=== PATIENT | female | born 1945 | race Caucasian/White ===

== ENCOUNTER → 2017-09-02 08:14 | Outpatient (CLI) | payer MEDICARE, SELFPAY ==
[2017-09-02 09:56] LABS: Add Manual Diff / Slide Review NO; Basophils Percent Auto 0.8 % (0-2); Eosinophils Percent Auto 1.4 % (2-4); Hematocrit 39.4 % (36-46); Hemoglobin 13.6 g/dL (12.0-16.0); Lymphocytes Percent Auto 32.7 % (25-40); Mean Corpuscular HGB Conc 34.5 % (30-36); Mean Corpuscular Volume 95.8 fL (80-100); Monocytes Percent Auto 10.4 % (3-14); Neutrophils Absolute Auto 3400 /uL (3000-5900); Neutrophils Percent Auto 54.7 % (50-75); Platelet Count 266 X10^3/uL (150-400); Red Blood Cell Count 4.11 X10^6/uL (4.0-5.2); Red Cell Distribution Width 13.7 % (11.6-14.8); White Blood Cell Count 6.1 X10^3/uL (4.5-11.0)
[2017-09-02 10:11] LABS: Alanine Aminotransferase 35 IU/L (9-52); Albumin 4.5 g/dL (3.5-5.0); Albumin Globulin Ratio 1.4 (1.0-2.8); Alkaline Phosphatase 62 U/L (38-126); Aspartate Aminotransferase 37 IU/L (14-36); BUN Creatinine Ratio 24.3 (6-22); Bilirubin Total 0.9 mg/dL (0.2-1.3); Blood Urea Nitrogen 17 mg/dL (7-17); Calcium 10.1 mg/dL (8.4-10.2); Carbon Dioxide 27 mmol/L (22-32); Chloride 101 mmol/L (98-107); Cholesterol 272 mg/dL (140-199); Estimated Glomerular Filt Rate > 60.0 mL/min (>60); Globulin 3.2 g/dL (1.7-4.1); Glucose 91 mg/dL (80-110); HDL Cholesterol 96 mg/dL (40-60); HEMOLYSIS < 15 (0-50); LDL Cholesterol Calculated 153 mg/dL (<100); Potassium 4.7 mmol/L (3.4-5.1); Sodium 140 mmol/L (137-145); Total Protein 7.7 g/dL (6.3-8.2); Triglycerides 114 mg/dL (35-150)
[2017-09-02 10:39] LABS: TSH w/ Reflex to FT4 3.61 uIU/mL (0.47-4.68)
== END ==
PROVIDERS: PCP Internal Medicine; Visit Provider Internal Medicine
DX: R94.6 Abnormal results of thyroid function studies (principal); R79.89 Other specified abnormal findings of blood chemistry; D70.9 Neutropenia, unspecified; E78.5 Hyperlipidemia, unspecified
CPT/HCPCS: 36415; 80053; 80061; 84443; 85025

== ENCOUNTER → 2017-09-15 15:06 | Outpatient (CLI) | payer MEDICARE, SELFPAY | PROVIDERS: Family Provider Internal Medicine; PCP Internal Medicine; Visit Provider Internal Medicine | DX: M81.0 Age-related osteoporosis without current pathological fracture (principal); Z78.0 Asymptomatic menopausal state | CPT/HCPCS: 77080 ==

== ENCOUNTER 2018-11-03 06:28 | Emergency (ER) | payer OTHER, SELFPAY ==
--- NOTE | 2018-11-03 06:35 | ED_ITS ---
HPI - General Adult <Parth Kellogg DO - Last Filed: 11/03/18 17:57> General Chief complaint: Dizziness Stated complaint: dizzy Time Seen by Provider: 11/03/18 06:31 Source: patient Mode of arrival: wheelchair Limitations: no limitations History of Present Illness HPI narrative: 73-year-old female here for evaluation of vertigo. States she has never felt anything like this. Started approximately 45 minutes prior arrival to here in the emergency department. Stated that it started with abdominal cramping and nausea. She then sat up to go the bathroom when she had a sudden onset of the vertigo. No vision changes. No ringing in her ears. No shortness of breath chest pain or palpitations. States she had to crawl to the bathroom. Difficult time standing. At the time my evaluation she reports that she has improvement of her symptoms compared with earlier today. Does seem to be positional specially when she turns her head to the left. Related Data Previous Rx's Medication Instructions Recorded apixaban [Eliquis] See Rx Instructions .ROUTE 11/03/18 .COMPLEX #60 tab Allergies Allergy/AdvReac Type Severity Reaction Status Date / Time No Known Drug Allergies Allergy Verified 09/08/17 10:18 Review of Systems <DO Sirisha Liang Last Filed: 11/03/18 17:57> Constitutional Denies fatigue, Denies fever(s) and Denies headache(s) Eyes Denies change in vision and Denies diplopia ENT Ears, Nose, Mouth, and Throat: Denies vertigo, Denies dizziness, Denies headache(s), Reports disequilibrium and Denies tinnitus Cardiovascular Denies chest pain, Denies syncope, Denies lightheadedness and Denies dyspnea Respiratory Denies dyspnea Gastrointestinal Gastrointestinal: Denies abdominal pain, Denies change in stool character and Reports nausea Musculoskeletal Denies myalgias, Denies arthralgias and Denies tingling Integumentary/Breasts Denies rash Neurologic Denies vertigo, Denies dizziness, Denies syncope, Denies headache(s), Denies radicular pain, Denies tingling and Reports disequilibrium Endocrine Denies fatigue Hematologic/Lymphatic Denies easy bleeding and Denies easy bruising PFSH <DO Sirisha Liang Last Filed: 11/03/18 17:57> Medical History Anemia (Chronic ~1959) Cervical spine disease (Chronic ~2004) Colon polyps (Chronic ~2009) Diverticular disease (Chronic ~1971) Fibroids (Chronic ~1994) Hemorrhoid (Chronic ~1967) Human papilloma virus (Chronic ~2005) Hyperlipidemia (Chronic) Lumbar spine pain (Chronic ~2005) Osteoporosis (Chronic) Chicken pox (Resolved ~1953) Surgical History (Updated 09/08/17 @ 09:49 by Elva Gtz) Anesthesia (Resolved) Normal colonoscopy (Resolved ~2013) History of tonsillectomy Status post appendectomy Status post dilation and curettage Status post ovarian cystectomy Status post tubal ligation Family History (Updated 08/07/14 @ 00:00 by Conversion Provider) Father Hypertension Brother Age: 91 Hyperlipidemia Mother High cholesterol Mental health problem Social History Smoking Status: Never smoker Family History (Updated 08/07/14 @ 00:00 by Conversion Provider) Father Hypertension Brother Age: 91 Hyperlipidemia Mother High cholesterol Mental health problem Social History Smoking Status: Never smoker Exam <Parth Kellogg DO - Last Filed: 11/03/18 17:57> Initial Vital Signs Initial Vital Signs: Vital Signs Temperature 97.6 F 11/03/18 06:38 Pulse Rate 72 11/03/18 06:38 Respiratory Rate 16 11/03/18 06:38 Blood Pressure 122/65 11/03/18 06:38 Pulse Oximetry 100 11/03/18 06:38 Const General: cooperative, comfortable, well developed, well groomed and No acute distress Orientation: alert, awake and oriented x3 HENMT Head: normal to inspection and normocephalic Eyes Pupils: PERRL Resp Effort & Inspection: normal respiratory effort Auscultation: clear to auscultation bilaterally Cardio Rate: regular rate Rhythm: regular rhythm Skin Lesions: no lesions Rashes: no rashes Neuro General: alert, awake and oriented x3 Cognition: normal cognition Speech: speech normal Other: Kody Hallpike positives of the left Extrem General: normal to inspection and capillary refill normal Psych Appearance: grossly normal and well kempt <Ariel Edgar DO - Last Filed: 11/03/18 16:01> Initial Vital Signs Initial Vital Signs: Vital Signs Temperature 97.6 F 11/03/18 06:38 Pulse Rate 72 11/03/18 06:38 Respiratory Rate 16 11/03/18 06:38 Blood Pressure 122/65 11/03/18 06:38 Pulse Oximetry 100 11/03/18 06:38 Course <Parth Kellogg DO - Last Filed: 11/03/18 17:57> Orders Ordered: Discontinued Medications Sodium Chloride (Normal Saline 0.9%) 1,000 mls @ 125 mls/hr IV CONT NIRAJ Last Infusion: 11/03/18 08:49 Dose: 125 mls/hr Infusion: 11/03/18 08:29 Dose: 0 mls/hr Admin: 11/03/18 06:44 Dose: 125 mls/hr Meclizine HCl (Antivert) 25 mg PO NOW ONE Stop: 11/03/18 06:35 Last Admin: 11/03/18 06:43 Dose: 25 mg Ondansetron HCl (Zofran Odt) 4 mg PO NOW ONE Stop: 11/03/18 06:35 Last Admin: 11/03/18 06:43 Dose: 4 mg Vital Signs - 8 hr 11/03/18 08:30 11/03/18 08:50 Temperature 97.6 F Pulse Rate 85 84 Respiratory Rate 21 20 Blood Pressure 122/59 L Blood Pressure [Right Arm] 122/59 L Pulse Oximetry 98 <Ariel Edgar DO - Last Filed: 11/03/18 16:01> Course Narrative: Patient received in sign-out from Dr. Kellogg. I have performed an independent history and physical and have no significant additions. Patient's has sudden onset severe vertiginous complaints that are positional, reproducible. She has recently complained of left ear fullness and has had her ear irrigated. Initial EKG was a slightly bradycardic atrial fibrillation, old EKGs note AFib. I've had a discussion with cardiology whom recommend anticoagulation, discharge, follow up including echo and a heart monitor. I've contacted her PCP (Simran Brunner) whom is happy to see the patient in the office tomorrow or friday. Patient has had all of her questions answered to her apparent satisfaction and has been given extensive return precautions which she understands as evidenced by her ability to repeat these back to me verbally Orders Ordered: Discontinued Medications Sodium Chloride (Normal Saline 0.9%) 1,000 mls @ 125 mls/hr IV CONT NIRAJ Last Infusion: 11/03/18 08:49 Dose: 125 mls/hr Infusion: 11/03/18 08:29 Dose: 0 mls/hr Admin: 11/03/18 06:44 Dose: 125 mls/hr Meclizine HCl (Antivert) 25 mg PO NOW ONE Stop: 11/03/18 06:35 Last Admin: 11/03/18 06:43 Dose: 25 mg Ondansetron HCl (Zofran Odt) 4 mg PO NOW ONE Stop: 11/03/18 06:35 Last Admin: 11/03/18 06:43 Dose: 4 mg Vital Signs - 8 hr 11/03/18 08:30 11/03/18 08:50 Temperature 97.6 F Pulse Rate 85 84 Respiratory Rate 21 20 Blood Pressure 122/59 L Blood Pressure [Right Arm] 122/59 L Pulse Oximetry 98 Medical Decision Making <Parth Kellogg DO - Last Filed: 11/03/18 17:57> Lab Data Result diagrams: 11/03/18 06:50 11/03/18 06:50 Lab Results 11/03/18 11/03/18 11/03/18 Range/Units 06:50 06:50 06:50 WBC 6.9 (4.5-11.0) X10^3/uL RBC 4.18 (4.0-5.2) X10^6/uL Hgb 13.4 (12.0-16.0) g/dL Hct 40.4 (36-46) % MCV 96.8 (80-100) fL MCH 32.2 (26-34) PG MCHC 33.2 (30-36) % RDW 13.5 (11.6-14.8) % Plt Count 254 (150-400) X10^3/uL Neut % (Auto) 60.4 (50-75) % Lymph % (Auto) 29.0 (25-40) % [place] % (Auto) 7.5 (3-14) % Eos % (Auto) 1.8 L (2-4) % Baso % (Auto) 1.3 (0-2) % Neut # (Auto) 4200 (5909-9635) /uL Lymph # (Auto) 2000 (2231-3098) /uL [place] # (Auto) 500 (0-900) /uL Eos # (Auto) 100 (0-450) /uL Baso # (Auto) 100 (0-100) /uL PT 10.7 (10.1-12.7) SECONDS INR 0.9 (0.9-1.3) APTT 24 L (26.4-36.2) SECONDS Sodium 137 (137-145) mmol/L Potassium 3.7 (3.4-5.1) mmol/L Chloride 105 (98-107) mmol/L Carbon Dioxide 24 (22-32) mmol/L BUN 19 H (7-17) mg/dL Creatinine 0.70 (0.52-1.04) mg/dL Estimated GFR > 60.0 (>60) mL/min BUN/Creatinine Ratio 27.1 H (6-22) Glucose 151 H (80-110) mg/dL Calcium 9.4 (8.4-10.2) mg/dL Magnesium (1.6-2.3) mg/dL Total Bilirubin 0.7 (0.2-1.3) mg/dL AST 25 (14-36) IU/L ALT 14 (9-52) IU/L Alkaline Phosphatase 54 (38-126) U/L Troponin I < 0.012 (0.01-0.034) ng/mL B-Natriuretic Peptide 149 H (<100) Total Protein 6.9 (6.3-8.2) g/dL Albumin 4.0 (3.5-5.0) g/dL Globulin 2.9 (1.7-4.1) g/dL Albumin/Globulin Ratio 1.4 (1.0-2.8) Lipase 55 (23-300) U/L TSH (0.47-4.68) uIU/mL Thyroxine (T4) (5.5-11.0) ug/dL 11/03/18 11/03/18 Range/Units 06:50 06:50 WBC (4.5-11.0) X10^3/uL RBC (4.0-5.2) X10^6/uL Hgb (12.0-16.0) g/dL Hct (36-46) % MCV (80-100) fL MCH (26-34) PG MCHC (30-36) % RDW (11.6-14.8) % Plt Count (150-400) X10^3/uL Neut % (Auto) (50-75) % Lymph % (Auto) (25-40) % [place] % (Auto) (3-14) % Eos % (Auto) (2-4) % Baso % (Auto) (0-2) % Neut # (Auto) (4763-3334) /uL Lymph # (Auto) (8150-6508) /uL [place] # (Auto) (0-900) /uL Eos # (Auto) (0-450) /uL Baso # (Auto) (0-100) /uL PT (10.1-12.7) SECONDS INR (0.9-1.3) APTT (26.4-36.2) SECONDS Sodium (137-145) mmol/L Potassium (3.4-5.1) mmol/L Chloride (98-107) mmol/L Carbon Dioxide (22-32) mmol/L BUN (7-17) mg/dL Creatinine (0.52-1.04) mg/dL Estimated GFR (>60) mL/min BUN/Creatinine Ratio (6-22) Glucose (80-110) mg/dL Calcium (8.4-10.2) mg/dL Magnesium 1.7 (1.6-2.3) mg/dL Total Bilirubin (0.2-1.3) mg/dL AST (14-36) IU/L ALT (9-52) IU/L Alkaline Phosphatase (38-126) U/L Troponin I (0.01-0.034) ng/mL B-Natriuretic Peptide (<100) Total Protein (6.3-8.2) g/dL Albumin (3.5-5.0) g/dL Globulin (1.7-4.1) g/dL Albumin/Globulin Ratio (1.0-2.8) Lipase (23-300) U/L TSH 4.18 (0.47-4.68) uIU/mL Thyroxine (T4) 3.92 L (5.5-11.0) ug/dL ECG Data Attestation: I personally reviewed and interpreted this ECG as follows: Prior ECG tracings: available for review Interpretation: Atrial fibrillation Ventricular rate is 63 QT interval [address] T wave changes Comparison EKG from 12/24/2012 Atrial fibrillation Ventricular rate of 107 Normal axis QTC [address] T wave changes MDM Narrative Medical decision making narrative: Upon arrival patient's symptoms did seem consistent peripheral vertigo. Was reproducible with the Radha-Hallpike maneuver to the left however this is in the confines that the patient states that her symptoms have improved since this morning. She is in AFib on her EKG. Patient states that she does not have a history of atrial fibrillation. She does have a prior EKG from 2012 which shows atrial fibrillation. Patient is not on anticoagulation. Care turned over to day provider change of shift to follow up on labs and disposition. <Ariel Edgar DO - Last Filed: 11/03/18 16:01> Lab Data Lab Results 11/03/18 11/03/18 11/03/18 Range/Units 06:50 06:50 06:50 WBC 6.9 (4.5-11.0) X10^3/uL RBC 4.18 (4.0-5.2) X10^6/uL Hgb 13.4 (12.0-16.0) g/dL Hct 40.4 (36-46) % MCV 96.8 (80-100) fL MCH 32.2 (26-34) PG MCHC 33.2 (30-36) % RDW 13.5 (11.6-14.8) % Plt Count 254 (150-400) X10^3/uL Neut % (Auto) 60.4 (50-75) % Lymph % (Auto) 29.0 (25-40) % [place] % (Auto) 7.5 (3-14) % Eos % (Auto) 1.8 L (2-4) % Baso % (Auto) 1.3 (0-2) % Neut # (Auto) 4200 (8989-9035) /uL Lymph # (Auto) 2000 (3570-7752) /uL [place] # (Auto) 500 (0-900) /uL Eos # (Auto) 100 (0-450) /uL Baso # (Auto) 100 (0-100) /uL PT 10.7 (10.1-12.7) SECONDS INR 0.9 (0.9-1.3) APTT 24 L (26.4-36.2) SECONDS Sodium 137 (137-145) mmol/L Potassium 3.7 (3.4-5.1) mmol/L Chloride 105 (98-107) mmol/L Carbon Dioxide 24 (22-32) mmol/L BUN 19 H (7-17) mg/dL Creatinine 0.70 (0.52-1.04) mg/dL Estimated GFR > 60.0 (>60) mL/min BUN/Creatinine Ratio 27.1 H (6-22) Glucose 151 H (80-110) mg/dL Calcium 9.4 (8.4-10.2) mg/dL Magnesium (1.6-2.3) mg/dL Total Bilirubin 0.7 (0.2-1.3) mg/dL AST 25 (14-36) IU/L ALT 14 (9-52) IU/L Alkaline Phosphatase 54 (38-126) U/L Troponin I < 0.012 (0.01-0.034) ng/mL B-Natriuretic Peptide 149 H (<100) Total Protein 6.9 (6.3-8.2) g/dL Albumin 4.0 (3.5-5.0) g/dL Globulin 2.9 (1.7-4.1) g/dL Albumin/Globulin Ratio 1.4 (1.0-2.8) Lipase 55 (23-300) U/L TSH (0.47-4.68) uIU/mL Thyroxine (T4) (5.5-11.0) ug/dL 11/03/18 11/03/18 Range/Units 06:50 06:50 WBC (4.5-11.0) X10^3/uL RBC (4.0-5.2) X10^6/uL Hgb (12.0-16.0) g/dL Hct (36-46) % MCV (80-100) fL MCH (26-34) PG MCHC (30-36) % RDW (11.6-14.8) % Plt Count (150-400) X10^3/uL Neut % (Auto) (50-75) % Lymph % (Auto) (25-40) % [place] % (Auto) (3-14) % Eos % (Auto) (2-4) % Baso % (Auto) (0-2) % Neut # (Auto) (7539-4381) /uL Lymph # (Auto) (1291-4227) /uL [place] # (Auto) (0-900) /uL Eos # (Auto) (0-450) /uL Baso # (Auto) (0-100) /uL PT (10.1-12.7) SECONDS INR (0.9-1.3) APTT (26.4-36.2) SECONDS Sodium (137-145) mmol/L Potassium (3.4-5.1) mmol/L Chloride (98-107) mmol/L Carbon Dioxide (22-32) mmol/L BUN (7-17) mg/dL Creatinine (0.52-1.04) mg/dL Estimated GFR (>60) mL/min BUN/Creatinine Ratio (6-22) Glucose (80-110) mg/dL Calcium (8.4-10.2) mg/dL Magnesium 1.7 (1.6-2.3) mg/dL Total Bilirubin (0.2-1.3) mg/dL AST (14-36) IU/L ALT (9-52) IU/L Alkaline Phosphatase (38-126) U/L Troponin I (0.01-0.034) ng/mL B-Natriuretic Peptide (<100) Total Protein (6.3-8.2) g/dL Albumin (3.5-5.0) g/dL Globulin (1.7-4.1) g/dL Albumin/Globulin Ratio (1.0-2.8) Lipase (23-300) U/L TSH 4.18 (0.47-4.68) uIU/mL Thyroxine (T4) 3.92 L (5.5-11.0) ug/dL Discharge Plan Departure Patient Disposition: Home Clinical Impression: Dizziness Atrial fibrillation Qualifiers: Atrial fibrillation type: paroxysmal Qualified Code(s): I48.0 - Paroxysmal atrial fibrillation Discharge Date/Time: 11/03/18 08:51 Interventions: ED Discharge Assessment Last Done: 11/03/18 08:50 Instructions: DI for Atrial Fibrillation, DI for Vertigo Activity Restrictions/Additional Instructions: *You have been diagnosed with [dizziness, likely from vertigo and paroxysmal atrial fibrillation] *What to do: *Take medications as directed: Eliquis electronically transmitted to [facility]'s *Follow up with your primary care provider as soon as possible, call for an appointment today. Let them know you were seen in the Emergency Department and that we ask that you be seen in follow up. I've called Simran Brunner and she is expecting you to contact the office this morning *Return to ER if you should have any new, worsening or concerning symptoms Prescriptions: New Eliquis 5 mg tablet See Rx Instructions .ROUTE .COMPLEX Qty: 60 RF: 0 Referrals: Simran Brunner ARNP [Primary Care Provider] -
[2018-11-03 06:38] VITALS: BP 122/65; PULSE 72; RESP 16; TEMP 36.4; O2SAT 100; BMI 22.4
[2018-11-03] MEDS: MECLIZINE HCL 12.5 MG TABLET 25 MG PO (06:43)
[2018-11-03] MEDS: ONDANSETRON 4 MG ODT PO (06:43)
[2018-11-03] MEDS: SODIUM CHLORIDE 0.9% 1,000 ML 125 ML IV (06:44)
[2018-11-03 06:57] VITALS: BP 122/65; PULSE 66; RESP 15; O2SAT 94
[2018-11-03 07:01] LABS: Add Manual Diff / Slide Review NO; Basophils Absolute Auto 100 /uL (0-100); Basophils Percent Auto 1.3 % (0-2); Eosinophils Absolute Auto 100 /uL (0-450); Eosinophils Percent Auto 1.8 % (2-4); Hematocrit 40.4 % (36-46); Hemoglobin 13.4 g/dL (12.0-16.0); Lymphocytes Absolute Auto 2000 /uL (1100-4500); Mean Corpuscular HGB Conc 33.2 % (30-36); Mean Corpuscular Hemoglobin 32.2 PG (26-34); Mean Corpuscular Volume 96.8 fL (80-100); Monocytes Absolute Auto 500 /uL (0-900); Monocytes Percent Auto 7.5 % (3-14); Neutrophils Absolute Auto 4200 /uL (1500-7000); Neutrophils Percent Auto 60.4 % (50-75); Platelet Count 254 X10^3/uL (150-400); Red Blood Cell Count 4.18 X10^6/uL (4.0-5.2); Red Cell Distribution Width 13.5 % (11.6-14.8); White Blood Cell Count 6.9 X10^3/uL (4.5-11.0)
[2018-11-03 07:08] LABS: INR 0.9 (0.9-1.3); Prothrombin Time 10.7 SECONDS (10.1-12.7)
[2018-11-03 07:10] LABS: PTT Partial Thromboplastin Tim 24 SECONDS (26.4-36.2)
[2018-11-03 07:12] LABS: Alanine Aminotransferase 14 IU/L (9-52); Albumin Globulin Ratio 1.4 (1.0-2.8); Alkaline Phosphatase 54 U/L (38-126); Aspartate Aminotransferase 25 IU/L (14-36); BUN Creatinine Ratio 27.1 (6-22); Bilirubin Total 0.7 mg/dL (0.2-1.3); Blood Urea Nitrogen 19 mg/dL (7-17); Calcium 9.4 mg/dL (8.4-10.2); Carbon Dioxide 24 mmol/L (22-32); Chloride 105 mmol/L (98-107); Estimated Glomerular Filt Rate > 60.0 mL/min (>60); Globulin 2.9 g/dL (1.7-4.1); Glucose 151 mg/dL (80-110); HEMOLYSIS < 15 (0-50); Lipase 55 U/L (23-300); Potassium 3.7 mmol/L (3.4-5.1); Sodium 137 mmol/L (137-145); Total Protein 6.9 g/dL (6.3-8.2)
[2018-11-03 07:20] LABS: B Type Natriuretic Peptide 149 (<100)
[2018-11-03 07:24] LABS: Troponin I < 0.012 ng/mL (0.01-0.034)
[2018-11-03 07:27] VITALS: BP 113/59; PULSE 65; RESP 21; O2SAT 99
[2018-11-03 07:47] VITALS: BP 105/51; PULSE 65; RESP 13; O2SAT 100
[2018-11-03 08:17] LABS: Magnesium 1.7 mg/dL (1.6-2.3)
[2018-11-03 08:30] VITALS: BP 122/59; PULSE 85; RESP 21
[2018-11-03 08:35] LABS: T4 Total Thyroxine 3.92 ug/dL (5.5-11.0)
[2018-11-03 08:48] LABS: Thyroid Stimulating Hormone 4.18 uIU/mL (0.47-4.68)
[2018-11-03 08:50] VITALS: BP 122/59; PULSE 84; RESP 20; TEMP 36.4; O2SAT 98
== END 2018-11-03 08:51 | disposition home or self-care (01) ==
PROVIDERS: Emergency Medicine; Emergency Provider Emergency Medicine; Family Provider Internal Medicine; PCP Internal Medicine
DX: R42 Dizziness and giddiness (principal); I48.0 Paroxysmal atrial fibrillation; Z79.01 Long term (current) use of anticoagulants
CPT/HCPCS: 36591; 80053; 83690; 83735; 83880; 84436; 84443; 84484; 85025; 85610; 85730; 93005; 96360; 96361; 99283; 99284

== ENCOUNTER → 2018-11-24 09:09 | Outpatient (CLI) | payer OTHER, SELFPAY ==
--- NOTE | 2018-11-24 | DI.ECHO.S_ITS ---
[facility] +---------+ : : [address] : : : : [id number] : : : : Phone: [phone] Echocardiogram Report + + :Name: EVELIA YUSUF Study Date: 11/24/2018 Height: 64 in : :[facility] Weight: 130 lb : : Gender: Female BSA: 1.6 m2 : :: 1945 Age: 73 yrs BP: 138/64 mmHg: :Reason For Study: Atrial fibrillation : : Performed By: Rosalia Dallas : :Referring: KIN BURR : + + Interpretation Summary The left ventricle is normal in size. Left ventricular systolic function is mildly reduced. The ejection fraction is estimated to be 45-50%. There is milld hypokinesis along the mid anteroseptal, mid anterior, apical anterior and apical septum. Diastolic function could not be accurately assessed due to atrial fibrillation. The right ventricle grossly appears normal in size with probable normal systolic function. The right ventricular systolic pressure is estimated to be at least 28 mmHg based on an estimated right atrial pressure of 3 mm Hg. The left atrium is severely dilated. The right atrium is moderate to severely dilated. The mitral valve leaflets appear mildly thickened, but open well. There is flattening of the mitral valve during late systole. There is moderate to severe mitral regurgitation. There is mild aortic regurgitation. There is no other significant valvular heart disease. The aortic root is normal size. Procedure: A two-dimensional transthoracic echocardiogram with color flow and Doppler was performed. The study quality was technically good. There is no prior echocardiogram noted for this patient. The patient was in atrial fibrillation with heart rates between 80-98 bpm during the exam. Left Ventricle: The left ventricle is normal in size. There is normal left ventricular wall thickness. Left ventricular systolic function is mildly reduced. The ejection fraction is estimated to be 45-50%. There is milld hypokinesis along the mid anteroseptal, mid anterior, apical anterior and apical septum. Diastolic function could not be accurately assessed due to atrial fibrillation. Right Ventricle: The right ventricle grossly appears normal in size with probable normal systolic function. Atria: The left atrium is severely dilated. The right atrium is moderate to severely dilated. The interatrial septum is intact with no evidence for an atrial septal defect. Mitral Valve: The mitral valve leaflets appear mildly thickened, but open well. There is flattening of the mitral valve during late systole. There is moderate to severe mitral regurgitation. Aortic Valve: The aortic valve is trileaflet. The aortic valve opens well. There is mild aortic valve sclerosis. There is mild aortic regurgitation. Tricuspid Valve: The tricuspid valve leaflets are thin and pliable. There is mild tricuspid regurgitation. The right ventricular systolic pressure is estimated to be at least 28 mmHg based on an estimated right atrial pressure of 3 mm Hg. Pulmonic Valve: The pulmonic valve is normal in structure and function. There is no pulmonic valvular regurgitation. There is no other significant valvular heart disease. Great Vessels: The aortic root is normal size. The dimensions of the ascending aorta are normal. The aortic arch is normal in size. The IVC is of normal diameter and collapses greater than 50% with a sniff. This suggests a low right atrial pressure of 3 mm Hg. Pericardium/ Pleura There is no pericardial effusion. There is no pleural effusion. MMode/2D Measurements & Calculations LVIDd: 4.9 cm Ao root diam: 3.5 cm LVIDs: 3.0 cm Aortic Jxn: 3.0 cm FS: 39.7 % asc Aorta Diam: 2.7 cm EPSS: 0.51 cm Ao Arch Diam (Prox Trans): 2.7 cm IVSd: 0.90 cm LVPWd: 0.90 cm LV bernard. diameter/BSA (cm/m^2): 3.0 LV sys. diameter/BSA (cm/m^2): 1.8 LA dimension: 3.9 cm RA long axis: 5.6 cm LA A2 area: 28.8 cm2 RA area: 23.4 cm2 LA A4 area: 31.7 cm2 RA vol: 82.1 ml LA length (vol): 6.2 cm RA : 50.4 ml/m2 LA vol: 125.4 ml IVC diam: 1.3 cm LA vol index: 77.0 ml/m2 RVDd major: 5.9 cm RVD1 (basal): 3.0 cm RVD2 (mid): 2.4 cm Doppler Measurements & Calculations Ao V2 max: 95.0 cm/sec AI P1/2t: 600.8 msec Ao V2 mean: 62.8 cm/sec AI dec slope: 201.1 cm/sec2 Ao max P.6 mmHg Ao mean P.8 mmHg Ao V2 VTI: 19.8 cm MV E max kavita: 93.4 cm/sec TR max kavita: 248.4 cm/sec MV A max kavita: 74.0 cm/sec TR max P.7 mmHg MV E/A: 1.3 PA V2 max: 60.7 cm/sec MV dec time: 0.20 sec PA V2 mean: 38.0 cm/sec MV P1/2t: 58.6 msec PA mean P.70 mmHg MR ERO: 0.30 cm2 PA Accel Time: 0.14 sec MV P1/2t max kavita: 93.0 cm/sec MR flow rate: 149.6 cm3/sec MVA(P1/2t): 3.8 cm2 MR PISA radius: 0.78 cm Reading Physician:06:37 PM
== END ==
PROVIDERS: PCP Internal Medicine; Visit Provider Internal Medicine
DX: M81.0 Age-related osteoporosis without current pathological fracture (principal)
CPT/HCPCS: 77080; 93306

== ENCOUNTER → 2019-03-15 07:18 | Outpatient (CLI) | payer OTHER, SELFPAY ==
--- NOTE | 2019-03-16 17:49 | DI.NM.S_ITS ---
DATE OF SERVICE: 03/15/2019 PROCEDURE: Exercise perfusion study. INDICATIONS: Atrial fibrillation with underlying LV dysfunction. RADIOPHARMACEUTICAL: 24.6 mCi technetium-99m Myoview IV was injected at stress and 24.4 mCi technetium-99m Myoview IV was injected at rest. CARDIAC STRESS: Patient underwent exercise perfusion study under the supervision of an attending staff using standard Cristóbal protocol. She walked on Cristóbal protocol for 5 minutes 28 seconds, achieved 121% of target heart rate, normal hemodynamic response. Baseline blood pressure 130/84. Maximum blood pressure 200/90. Peak heart rate 178. Baseline EKG revealed atrial fibrillation with controlled ventricular rate. During exercise, there was enhance chronotropic response. At peak exercise, there was 1 to1.5 mm horizontal as well as downsloping ST depression in inferolateral leads with recovery. Occasional PVCs. No significant symptoms were reported. RAW DATA: Breast shadow was seen. There was increased subdiaphragmatic activity. GATED STUDY: Resting LV ejection fraction 73% and stress LV ejection fraction 74%. No obvious wall motion abnormalities. Resting end-diastolic volume is 124 mL. TID ratio is 0.93, which is within normal limits. Lung/heart ratio is 0.33, which is within normal limits. MYOCARDIAL PERFUSION SCAN: Stress supine, resting supine images revealed small- sized mildly decreased perfusion of mid anterior wall which got slightly improved during prone images. Prone images remained to have minimally decreased perfusion of mid anterior wall. No significant perfusion defect involving the rest of the LV myocardium. No reversible ischemia. CONCLUSION: No obvious reversible ischemia. There is a mild mid anterior wall defect which was seen during resting as well as stress supine images which got partially improved during prone images. It appears to be that we are dealing with persistent breast tissue attenuation artifact. No obvious wall motion abnormalities in the anterior wall. Overall, left ventricular (LV) function is preserved in this study. Hence, I will call this study likely a normal myocardial perfusion study. Patient has baseline atrial fibrillation. There was enhanced chronotropic response. Kristen Quiroz - ISAIAS/spencer/ doc#: [id number]/job#: [id number] dd: 03/16/2019 16:24:00 dt: 03/16/2019 17:41:00 DICTATING MD/COPIES TO: Vin Valadez MD COPIES MNE: CASIMIRO
== END ==
PROVIDERS: PCP Internal Medicine; Visit Provider Internal Medicine Cardiovascular Disease
DX: I48.19 Other persistent atrial fibrillation (principal); I42.9 Cardiomyopathy, unspecified
CPT/HCPCS: 78452; 93016; 93017; 93018; A9502

== ENCOUNTER → 2019-04-16 08:11 | Outpatient (ROUT) | payer OTHER, SELFPAY ==
[2019-04-16 08:19] LABS: INR 1.6 (0.9-1.3)
== END ==
PROVIDERS: PCP Internal Medicine; Visit Provider Internal Medicine
DX: I48.91 Unspecified atrial fibrillation (principal)
CPT/HCPCS: 85610

== ENCOUNTER → 2019-04-19 08:36 | Outpatient (ROUT) | payer OTHER, SELFPAY ==
[2019-04-19 08:57] LABS: INR 3.6 (0.9-1.3); Prothrombin Time 42.3 SECONDS (10.1-12.7)
== END ==
PROVIDERS: PCP Internal Medicine; Visit Provider Internal Medicine
DX: I48.91 Unspecified atrial fibrillation (principal)
CPT/HCPCS: 85610

== ENCOUNTER → 2019-04-22 08:31 | Outpatient (ROUT) | payer OTHER, SELFPAY ==
[2019-04-22 09:24] LABS: Prothrombin Time 56.1 SECONDS (10.1-12.7)
[2019-04-22 09:31] LABS: INR 4.7 (0.9-1.3)
== END ==
PROVIDERS: PCP Internal Medicine; Visit Provider Internal Medicine
DX: Z79.01 Long term (current) use of anticoagulants (principal)
CPT/HCPCS: 85610

== ENCOUNTER → 2019-04-26 07:48 | Outpatient (ROUT) | payer OTHER, SELFPAY ==
[2019-04-26 07:59] LABS: INR 1.5 (0.9-1.3); Prothrombin Time 17.8 SECONDS (10.1-12.7)
== END ==
PROVIDERS: PCP Internal Medicine; Visit Provider Internal Medicine
DX: Z79.01 Long term (current) use of anticoagulants (principal)
CPT/HCPCS: 85610

== ENCOUNTER → 2019-04-26 10:02 | Outpatient (CLI) | payer OTHER, SELFPAY ==
--- NOTE | 2019-04-26 10:07 | DI.CT.S_ITS ---
PROCEDURE: CT SINUS SCREEN WO CON INDICATIONS: Other chronic sinusitis TECHNIQUE: Noncontrast 3.0 mm axial images acquired from the frontal sinuses to the mid-sella, with coronal and sagittal reformats. For radiation dose reduction, the following was used: automated exposure control, adjustment of mA and/or kV according to patient size. COMPARISON: None. FINDINGS: Image quality: Excellent. Maxillary Sinuses: No bony remodeling or destruction. Sinuses are clear. Ethmoid Air Cells: No bony remodeling or destruction. Sinuses are clear. Sphenoid Sinuses: No bony remodeling or destruction. Sinuses are clear. Frontal Sinuses: No bony remodeling or destruction. Sinuses are clear. Ostiomeatal Complexes: Ostiomeatal complexes are patent. No Ahsan cells. Miscellaneous: Visualized intra-orbital contents are normal. No adrian bullosa or paradoxical turbinate curvature. There is minimal to mild leftward nasal septal deviation. IMPRESSION: No active paranasal sinus disease is seen. Minimal to mild leftward nasal septal deviation. Dictated by: Jaun Moyer M.D. on 04/26/2019 at 9:26 Approved by: Jaun Moyer M.D. on 04/26/2019 at 9:27
== END ==
PROVIDERS: PCP Internal Medicine; Visit Provider Otolaryngology
DX: J32.8 Other chronic sinusitis (principal)
CPT/HCPCS: 70486

== ENCOUNTER → 2019-04-30 07:46 | Outpatient (ROUT) | payer OTHER, SELFPAY ==
[2019-04-30 07:54] LABS: INR 2.6 (0.9-1.3)
== END ==
PROVIDERS: PCP Internal Medicine; Visit Provider Internal Medicine
DX: Z79.01 Long term (current) use of anticoagulants (principal)
CPT/HCPCS: 85610

== ENCOUNTER → 2019-05-07 07:59 | Outpatient (ROUT) | payer OTHER, SELFPAY ==
[2019-05-07 08:14] LABS: Prothrombin Time 55.7 SECONDS (10.1-12.7)
[2019-05-07 08:19] LABS: INR 4.7 (0.9-1.3)
== END ==
PROVIDERS: PCP Internal Medicine; Visit Provider Internal Medicine
DX: Z79.01 Long term (current) use of anticoagulants (principal)
CPT/HCPCS: 85610

== ENCOUNTER → 2019-05-12 07:32 | Outpatient (ROUT) | payer OTHER, SELFPAY ==
[2019-05-12 07:38] LABS: INR 1.8 (0.9-1.3)
== END ==
PROVIDERS: PCP Internal Medicine; Visit Provider Internal Medicine
DX: Z79.01 Long term (current) use of anticoagulants (principal)
CPT/HCPCS: 85610

== ENCOUNTER → 2019-05-17 08:09 | Outpatient (ROUT) | payer OTHER, SELFPAY ==
[2019-05-17 08:18] LABS: INR 2.9 (0.9-1.3); Prothrombin Time 32.9 SECONDS (10.1-12.7)
== END ==
PROVIDERS: PCP Internal Medicine; Visit Provider Internal Medicine
DX: Z79.01 Long term (current) use of anticoagulants (principal)
CPT/HCPCS: 85610

== ENCOUNTER → 2019-05-21 07:42 | Outpatient (ROUT) | payer OTHER, SELFPAY ==
[2019-05-21 07:52] LABS: INR 2.4 (0.9-1.3); Prothrombin Time 27.6 SECONDS (10.1-12.7)
== END ==
PROVIDERS: PCP Internal Medicine; Visit Provider Internal Medicine
DX: Z79.01 Long term (current) use of anticoagulants (principal)
CPT/HCPCS: 85610

== ENCOUNTER → 2019-05-28 07:42 | Outpatient (ROUT) | payer OTHER, SELFPAY ==
[2019-05-28 07:57] LABS: INR 2.3 (0.9-1.3); Prothrombin Time 25.7 SECONDS (10.1-12.7)
== END ==
PROVIDERS: PCP Internal Medicine; Visit Provider Internal Medicine
DX: Z79.01 Long term (current) use of anticoagulants (principal)
CPT/HCPCS: 85610

== ENCOUNTER → 2019-06-07 08:01 | Outpatient (ROUT) | payer OTHER, SELFPAY ==
[2019-06-07 08:42] LABS: INR 1.6 (0.9-1.3); Prothrombin Time 18.8 SECONDS (10.1-12.7)
== END ==
PROVIDERS: PCP Internal Medicine; Visit Provider Internal Medicine
DX: Z79.01 Long term (current) use of anticoagulants (principal)
CPT/HCPCS: 85610

== ENCOUNTER → 2019-06-14 07:40 | Outpatient (ROUT) | payer OTHER, SELFPAY ==
[2019-06-14 07:48] LABS: INR 2.5 (0.9-1.3); Prothrombin Time 28.2 SECONDS (10.1-12.7)
== END ==
PROVIDERS: PCP Internal Medicine; Visit Provider Internal Medicine
DX: Z79.01 Long term (current) use of anticoagulants (principal)
CPT/HCPCS: 85610

== ENCOUNTER → 2019-06-21 09:37 | Outpatient (CLI) | payer OTHER, SELFPAY ==
--- NOTE | 2019-06-21 | DI.MRI.S_ITS ---
PROCEDURE: MR HEAD/BRAIN WO/W CON INDICATIONS: Dizziness and giddiness TECHNIQUE: Noncontrast axial T1 spin echo, axial T2 fast spin echo, sagittal and axial FLAIR, coronal T2 fast spin echo, axial gradient echo, axial diffusion and ADC through the brain. After the administration of contrast, axial and coronal 3D VIBE or T1 spin echo with fat saturation through the brain. COMPARISON: None. FINDINGS: Image quality: Excellent. CSF Spaces: Basal cisterns are patent. No extra-axial fluid collections. Ventricles are normal in size and shape. Brain: No midline shift. No intracranial bleeds or masses. No abnormal intracranial enhancement. The brainstem appears normal. Diffusion-weighted images demonstrate no acute ischemic insults. No chronic ischemic insults. Normal intravascular flow voids are present. Skull and face: Calvarial marrow is normal in signal. Orbits appear normal. Sinuses: Sinuses and mastoids appear clear. IMPRESSION: Normal for age, source of current dizziness and altered mental status symptoms is not seen. Dictated by: Jamari Carpenter M.D. on 06/21/2019 at 10:47 Approved by: Jamari Carpenter M.D. on 06/21/2019 at 10:48
== END ==
PROVIDERS: PCP Internal Medicine; Referring Provider Internal Medicine; Visit Provider Internal Medicine
DX: R42 Dizziness and giddiness (principal)
CPT/HCPCS: 70553

== ENCOUNTER → 2019-06-28 07:33 | Outpatient (ROUT) | payer OTHER, SELFPAY ==
[2019-06-28 07:40] LABS: INR 1.9 (0.9-1.3); Prothrombin Time 21.1 SECONDS (10.1-12.7)
== END ==
PROVIDERS: PCP Internal Medicine; Visit Provider Family Medicine
DX: Z79.01 Long term (current) use of anticoagulants (principal)
CPT/HCPCS: 85610

== ENCOUNTER → 2019-07-05 08:05 | Outpatient (ROUT) | payer OTHER, SELFPAY ==
[2019-07-05 08:24] LABS: INR 1.9 (0.9-1.3); Prothrombin Time 22.2 SECONDS (10.1-12.7)
== END ==
PROVIDERS: PCP Internal Medicine; Visit Provider Internal Medicine
DX: Z79.01 Long term (current) use of anticoagulants (principal)
CPT/HCPCS: 85610

== ENCOUNTER → 2019-07-19 08:19 | Outpatient (ROUT) | payer OTHER, SELFPAY ==
[2019-07-19 08:30] LABS: INR 2.4 (0.9-1.3); Prothrombin Time 27.4 SECONDS (10.1-12.7)
== END ==
PROVIDERS: PCP Internal Medicine; Visit Provider Internal Medicine
DX: Z79.01 Long term (current) use of anticoagulants (principal)
CPT/HCPCS: 85610

== ENCOUNTER → 2019-08-02 08:10 | Outpatient (ROUT) | payer OTHER, SELFPAY ==
[2019-08-02 08:17] LABS: INR 2.8 (0.9-1.3); Prothrombin Time 31.6 SECONDS (10.1-12.7)
== END ==
PROVIDERS: PCP Internal Medicine; Visit Provider Internal Medicine
DX: Z79.01 Long term (current) use of anticoagulants (principal)
CPT/HCPCS: 85610

== ENCOUNTER → 2019-08-16 09:37 | Outpatient (ROUT) | payer OTHER, SELFPAY ==
[2019-08-16 10:02] LABS: INR 2.4 (0.9-1.3); Prothrombin Time 27.5 SECONDS (10.1-12.7)
== END ==
PROVIDERS: PCP Internal Medicine; Visit Provider Internal Medicine
DX: Z79.01 Long term (current) use of anticoagulants (principal)
CPT/HCPCS: 85610

== ENCOUNTER → 2019-08-31 09:55 | Outpatient (ROUT) | payer OTHER, SELFPAY ==
[2019-08-31 10:02] LABS: INR 2.3 (0.9-1.3); Prothrombin Time 26.5 SECONDS (10.1-12.7)
== END ==
PROVIDERS: PCP Internal Medicine; Visit Provider Internal Medicine
DX: Z79.01 Long term (current) use of anticoagulants (principal)
CPT/HCPCS: 85610

== ENCOUNTER → 2019-09-06 09:35 | Outpatient (CLI) | payer OTHER, SELFPAY ==
--- NOTE | 2019-09-06 | DI.MG.S_ITS ---
BILATERAL DIGITAL SCREENING MAMMOGRAM 3D/2D WITH CAD: 09/06/2019 CLINICAL: Routine screening. Comparison is made to exams dated: 08/18/2017 mammogram, 08/21/2015 mammogram, 08/17/2014 mammogram, 02/10/2012 mammogram, and 01/14/2011 mammogram - . There are scattered fibroglandular elements in both breasts. Current study was also evaluated with a Computer Aided Detection (CAD) system. No significant masses, calcifications, or other findings are seen in either breast. There has been no significant interval change. IMPRESSION: NEGATIVE There is no mammographic evidence of malignancy. A 1 year screening mammogram is recommended. This exam was interpreted at Station ID: [id number]. NOTE: For mammograms, a report in lay terms will be sent to the patient. Approximately 15% of breast malignancies will not be visualized mammographically. In the management of a palpable breast mass, a negative mammogram must not discourage biopsy of a clinically suspicious lesion. Electronically Signed By: Cornell phillip/kathy:09/06/2019 09:54:32 letter sent: Normal Exam ACR BI-RADS Category 1: Negative 3341F
== END ==
PROVIDERS: PCP Internal Medicine; Referring Provider Internal Medicine; Visit Provider Internal Medicine
DX: Z12.31 Encounter for screening mammogram for malignant neoplasm of breast (principal)
CPT/HCPCS: 77063; 77067

== ENCOUNTER → 2019-09-20 08:05 | Outpatient (ROUT) | payer OTHER, SELFPAY ==
[2019-09-20 08:19] LABS: INR 2.8 (0.9-1.3); Prothrombin Time 32.3 SECONDS (10.1-12.7)
== END ==
PROVIDERS: PCP Internal Medicine; Visit Provider Internal Medicine
DX: Z79.01 Long term (current) use of anticoagulants (principal)
CPT/HCPCS: 85610

== ENCOUNTER → 2019-10-18 10:36 | Outpatient (ROUT) | payer OTHER, SELFPAY ==
[2019-10-18 10:43] LABS: INR 2.8 (0.9-1.3); Prothrombin Time 31.4 SECONDS (10.1-12.7)
== END ==
PROVIDERS: PCP Internal Medicine; Visit Provider Internal Medicine
DX: I48.91 Unspecified atrial fibrillation (principal)
CPT/HCPCS: 85610

== ENCOUNTER → 2019-11-15 07:42 | Outpatient (ROUT) | payer OTHER, SELFPAY ==
[2019-11-15 08:23] LABS: INR 2.3 (0.9-1.3); Prothrombin Time 26.7 SECONDS (10.1-12.7)
== END ==
PROVIDERS: PCP Internal Medicine; Visit Provider Internal Medicine
DX: Z79.01 Long term (current) use of anticoagulants (principal)
CPT/HCPCS: 85610

== ENCOUNTER → 2019-12-14 07:47 | Outpatient (ROUT) | payer OTHER, SELFPAY ==
[2019-12-14 07:55] LABS: INR 2.4 (0.9-1.3); Prothrombin Time 27.4 SECONDS (10.1-12.7)
== END ==
PROVIDERS: PCP Internal Medicine; Visit Provider Internal Medicine
DX: Z79.01 Long term (current) use of anticoagulants (principal)
CPT/HCPCS: 85610

== ENCOUNTER → 2020-01-12 08:08 | Outpatient (ROUT) | payer OTHER, SELFPAY ==
[2020-01-12 08:18] LABS: INR 2.1 (0.9-1.3); Prothrombin Time 24.4 SECONDS (10.1-12.7)
== END ==
PROVIDERS: PCP Internal Medicine; Visit Provider Internal Medicine
DX: Z79.01 Long term (current) use of anticoagulants (principal)
CPT/HCPCS: 85610

== ENCOUNTER → 2020-02-07 08:00 | Outpatient (ROUT) | payer OTHER, SELFPAY ==
[2020-02-07 08:15] LABS: INR 2.6 (0.9-1.3); Prothrombin Time 30.1 SECONDS (10.1-12.7)
== END ==
PROVIDERS: PCP Internal Medicine; Visit Provider Internal Medicine
DX: Z79.01 Long term (current) use of anticoagulants (principal)
CPT/HCPCS: 85610

== ENCOUNTER → 2020-03-06 07:46 | Outpatient (ROUT) | payer OTHER, SELFPAY ==
[2020-03-06 07:53] LABS: INR 2.1 (0.9-1.3); Prothrombin Time 23.6 SECONDS (10.1-12.7)
== END ==
PROVIDERS: PCP Internal Medicine; Visit Provider Internal Medicine
DX: Z79.01 Long term (current) use of anticoagulants (principal)
CPT/HCPCS: 85610

== ENCOUNTER → 2020-04-10 07:39 | Outpatient (ROUT) | payer OTHER, SELFPAY ==
[2020-04-10 07:50] LABS: INR 2.5 (0.9-1.3)
== END ==
PROVIDERS: PCP Internal Medicine; Visit Provider Internal Medicine
DX: Z79.01 Long term (current) use of anticoagulants (principal)
CPT/HCPCS: 85610

== ENCOUNTER → 2020-05-08 08:18 | Outpatient (ROUT) | payer OTHER, SELFPAY ==
[2020-05-08 08:24] LABS: INR 2.2 (0.9-1.3); Prothrombin Time 25.1 SECONDS (10.1-12.7)
== END ==
PROVIDERS: PCP Internal Medicine; Visit Provider Internal Medicine
DX: Z79.01 Long term (current) use of anticoagulants (principal)
CPT/HCPCS: 85610

== ENCOUNTER → 2020-06-05 07:52 | Outpatient (ROUT) | payer OTHER, SELFPAY ==
[2020-06-05 08:00] LABS: INR 2.2 (0.9-1.3); Prothrombin Time 25.2 SECONDS (10.1-12.7)
== END ==
PROVIDERS: PCP Internal Medicine; Visit Provider Internal Medicine
DX: Z79.01 Long term (current) use of anticoagulants (principal)
CPT/HCPCS: 85610

== ENCOUNTER → 2020-06-12 12:34 | Outpatient (CLI) | payer OTHER, SELFPAY ==
--- NOTE | 2020-06-12 12:36 | DI.RAD.S_ITS ---
PROCEDURE: XR LUMBAR SPINE 2-3V INDICATIONS: fall from ladder, L hip and low back pain, on coumadin TECHNIQUE: 2 views of the lumbar spine were acquired. COMPARISON: None. FINDINGS: Bones: 5 [id number] vertebrae are present. There is mild dextroscoliosis centered at L3 level. No vertebral body compression fractures. Degenerative endplate changes are noted in mid to lower lumbar spine. Grade 1 anterolisthesis of L5 on S1 is seen. No suspicious bony lesions. Soft tissues: Overlying bowel gas pattern is normal. No suspicious soft tissue calcifications. IMPRESSION: Degenerative disc disease in lower lumbar spine. No acute lumbar spine fracture or dislocation. Grade 1 anterolisthesis of L5 on S1. Degenerative disc disease at L3-4 through L5-S1 levels. Dictated by: Demian Ruiz M.D. on 06/12/2020 at 13:08 Approved by: Demian Ruiz M.D. on 06/12/2020 at 13:09
--- NOTE | 2020-06-12 12:36 | DI.RAD.S_ITS ---
PROCEDURE: XR HIP W PEL IF DONE LT 2V INDICATIONS: fall from ladder, L hip and low back pain, on coumadin TECHNIQUE: AP pelvis with lateral view(s) of the left hip(s). COMPARISON: [facility], , HIP 2V LEFT, 07/27/2009, 17:30. FINDINGS: Bones: No fractures or dislocations. Pelvic ring appears intact. Symmetric appearing bilateral hip joint osteoarthritic changes are seen. No evidence of avascular necrosis of femoral head. No suspicious bony lesions. Soft tissues: The visualized bowel gas pattern is normal. No suspicious soft tissue calcifications. IMPRESSION: No gross acute left hip fracture or dislocation. No evidence of avascular necrosis. Mild symmetric appearing bilateral hip joint osteoarthritis. Dictated by: Demian Ruiz M.D. on 06/12/2020 at 13:09 Approved by: Demian Ruiz M.D. on 06/12/2020 at 13:09
--- NOTE | 2020-06-12 12:36 | DI.RAD.S_ITS ---
PROCEDURE: XR THORACIC SPINE 3V INDICATIONS: fall from ladder, L hip and low back pain, on coumadin TECHNIQUE: 3 views of the thoracic spine were acquired. COMPARISON: None. FINDINGS: Bones: No fractures or dislocations. Mild levoscoliosis centered at T10 level is seen. No suspicious bony lesions. Degenerative endplate changes are noted throughout mid to lower thoracic spine. 12 pairs of ribs are noted, and appear intact where visualized. Soft tissues: No paravertebral stripe thickening. IMPRESSION: No acute thoracic spine fracture or dislocation. Degenerative disc disease in mid to lower thoracic spine. Mild scoliosis as above. Dictated by: Demian Ruiz M.D. on 06/12/2020 at 13:07 Approved by: Demian Ruiz M.D. on 06/12/2020 at 13:08
== END ==
PROVIDERS: PCP Internal Medicine; Referring Provider Physician Assistant; Visit Provider Physician Assistant
DX: M25.552 Pain in left hip (principal); M16.0 Bilateral primary osteoarthritis of hip; M54.5 Low back pain; M51.34 Other intervertebral disc degeneration, thoracic region; M51.36 Other intervertebral disc degeneration, lumbar region; M51.37 Other intervertebral disc degeneration, lumbosacral region; M43.17 Spondylolisthesis, lumbosacral region; M41.84 Other forms of scoliosis, thoracic region; Z79.01 Long term (current) use of anticoagulants
CPT/HCPCS: 72072; 72100; 73502

== ENCOUNTER → 2020-07-10 07:47 | Outpatient (ROUT) | payer OTHER, SELFPAY ==
[2020-07-10 07:57] LABS: INR 3.9 (0.9-1.3); Prothrombin Time 44.1 SECONDS (10.1-12.7)
== END ==
PROVIDERS: PCP Internal Medicine; Visit Provider Internal Medicine
DX: Z79.01 Long term (current) use of anticoagulants (principal)
CPT/HCPCS: 85610

== ENCOUNTER → 2020-07-24 07:44 | Outpatient (ROUT) | payer OTHER, SELFPAY ==
[2020-07-24 07:51] LABS: INR 2.4 (0.9-1.3)
== END ==
PROVIDERS: PCP Internal Medicine; Visit Provider Internal Medicine
DX: Z79.01 Long term (current) use of anticoagulants (principal)
CPT/HCPCS: 85610

== ENCOUNTER → 2020-08-21 07:39 | Outpatient (ROUT) | payer OTHER, SELFPAY ==
[2020-08-21 07:46] LABS: INR 2.8 (0.9-1.3); Prothrombin Time 31.7 SECONDS (10.1-12.7)
== END ==
PROVIDERS: PCP Internal Medicine; Visit Provider Internal Medicine
DX: Z79.01 Long term (current) use of anticoagulants (principal)
CPT/HCPCS: 85610

== ENCOUNTER → 2020-09-18 07:37 | Outpatient (ROUT) | payer OTHER, SELFPAY ==
[2020-09-18 07:53] LABS: INR 2.3 (0.9-1.3); Prothrombin Time 27.2 SECONDS (10.1-12.7)
== END ==
PROVIDERS: PCP Internal Medicine; Visit Provider Internal Medicine
DX: Z79.01 Long term (current) use of anticoagulants (principal)
CPT/HCPCS: 85610

== ENCOUNTER → 2020-10-17 07:36 | Outpatient (ROUT) | payer OTHER, SELFPAY ==
[2020-10-17 07:49] LABS: INR 2.5 (0.9-1.3); Prothrombin Time 28.2 SECONDS (10.1-12.7)
== END ==
PROVIDERS: PCP Internal Medicine; Visit Provider Internal Medicine
DX: Z79.01 Long term (current) use of anticoagulants (principal)
CPT/HCPCS: 85610

== ENCOUNTER → 2020-11-13 08:02 | Outpatient (ROUT) | payer OTHER, SELFPAY ==
[2020-11-13 08:52] LABS: INR 2.7 (0.9-1.3); Prothrombin Time 31.5 SECONDS (10.1-12.7)
== END ==
PROVIDERS: PCP Internal Medicine; Visit Provider Internal Medicine
DX: Z79.01 Long term (current) use of anticoagulants (principal)
CPT/HCPCS: 85610

== ENCOUNTER → 2020-11-13 13:52 | Outpatient (CLI) | payer OTHER, SELFPAY ==
--- NOTE | 2020-11-13 | DI.RAD.S_ITS ---
PROCEDURE: XR CERVICAL SPINE 2V OR 3V INDICATIONS: CERVICALGIA TECHNIQUE: 4 view(s) of the cervical spine were acquired. COMPARISON: None. FINDINGS: Bones: No fractures or dislocations to the T1 level. The lateral masses of C1 appear intact on the odontoid view. No suspicious bony lesions. Disc space narrowing at C3-4, C4-5, C5-6, and C6-7 is identified consistent with disc disease. There is grade 1 anterolisthesis of C4 over C5. Soft tissues: No prevertebral soft tissue swelling. IMPRESSION: Multilevel degenerative disc disease involving C3-4, C4-5, C5-6, and C6-7. Dictated by: Faustino Coates M.D. on 11/13/2020 at 15:04 Approved by: Faustino Coates M.D. on 11/13/2020 at 15:06
== END ==
PROVIDERS: PCP Internal Medicine; Referring Provider Internal Medicine; Visit Provider Internal Medicine
DX: M50.31 Other cervical disc degeneration, high cervical region (principal); Z79.01 Long term (current) use of anticoagulants
CPT/HCPCS: 72040; 85610

== ENCOUNTER → 2020-12-12 08:09 | Outpatient (ROUT) | payer OTHER, SELFPAY ==
[2020-12-12 08:41] LABS: INR 2.6 (0.9-1.3); Prothrombin Time 29.7 SECONDS (10.1-12.7)
== END ==
PROVIDERS: PCP Internal Medicine; Visit Provider Internal Medicine
DX: Z79.01 Long term (current) use of anticoagulants (principal)
CPT/HCPCS: 85610

== ENCOUNTER → 2020-12-26 14:06 | Outpatient (CLI) | payer OTHER, SELFPAY | PROVIDERS: PCP Internal Medicine; Referring Provider Internal Medicine; Visit Provider Internal Medicine | DX: M81.0 Age-related osteoporosis without current pathological fracture (principal); M85.852 Other specified disorders of bone density and structure, left thigh; M85.851 Other specified disorders of bone density and structure, right thigh; M85.88 Other specified disorders of bone density and structure, other site | CPT/HCPCS: 77080 ==

== ENCOUNTER → 2021-01-15 10:07 | Outpatient (ROUT) | payer OTHER, SELFPAY ==
[2021-01-15 10:12] LABS: INR 2.5 (0.9-1.3); Prothrombin Time 28.2 SECONDS (10.1-12.7)
== END ==
PROVIDERS: PCP Internal Medicine; Visit Provider Internal Medicine
DX: Z79.01 Long term (current) use of anticoagulants (principal)
CPT/HCPCS: 85610

== ENCOUNTER → 2021-02-12 09:31 | Outpatient (ROUT) | payer OTHER, SELFPAY ==
[2021-02-12 09:46] LABS: INR 3.1 (0.9-1.3); Prothrombin Time 35.5 SECONDS (10.1-12.7)
== END ==
PROVIDERS: PCP Internal Medicine; Visit Provider Internal Medicine
DX: Z79.01 Long term (current) use of anticoagulants (principal)
CPT/HCPCS: 85610

== ENCOUNTER → 2021-03-12 11:42 | Outpatient (ROUT) | payer OTHER, SELFPAY | PROVIDERS: PCP Internal Medicine; Visit Provider Internal Medicine | DX: Z79.01 Long term (current) use of anticoagulants (principal) | CPT/HCPCS: 85610 ==

== ENCOUNTER → 2021-03-26 08:12 | Outpatient (ROUT) | payer OTHER, SELFPAY ==
[2021-03-26 09:01] LABS: Prothrombin Time 35.3 SECONDS (10.1-12.7)
== END ==
PROVIDERS: PCP Internal Medicine; Visit Provider Internal Medicine
DX: Z79.01 Long term (current) use of anticoagulants (principal)
CPT/HCPCS: 85610

== ENCOUNTER → 2021-04-10 08:25 | Outpatient (ROUT) | payer OTHER, SELFPAY ==
[2021-04-10 09:58] LABS: INR 2.3 (0.9-1.3); Prothrombin Time 26.8 SECONDS (10.1-12.7)
== END ==
PROVIDERS: PCP Internal Medicine; Visit Provider Family Medicine
DX: Z79.01 Long term (current) use of anticoagulants (principal)
CPT/HCPCS: 85610

== ENCOUNTER → 2021-05-07 08:07 | Outpatient (ROUT) | payer OTHER, SELFPAY ==
[2021-05-07 08:17] LABS: INR 2.4 (0.9-1.3); Prothrombin Time 28.2 SECONDS (10.1-12.7)
== END ==
PROVIDERS: PCP Internal Medicine; Visit Provider Internal Medicine
DX: Z79.01 Long term (current) use of anticoagulants (principal)
CPT/HCPCS: 85610

== ENCOUNTER → 2021-06-04 08:13 | Outpatient (ROUT) | payer OTHER, SELFPAY ==
[2021-06-04 08:27] LABS: INR 1.9 (0.9-1.3); Prothrombin Time 22.1 SECONDS (10.1-12.7)
== END ==
PROVIDERS: PCP Internal Medicine; Visit Provider Internal Medicine
DX: Z79.01 Long term (current) use of anticoagulants (principal)
CPT/HCPCS: 85610

== ENCOUNTER → 2021-06-18 08:42 | Outpatient (ROUT) | payer OTHER, SELFPAY ==
[2021-06-18 09:35] LABS: INR 2.6 (0.9-1.3)
== END ==
PROVIDERS: PCP Internal Medicine; Visit Provider Internal Medicine
DX: Z79.01 Long term (current) use of anticoagulants (principal)
CPT/HCPCS: 85610

== ENCOUNTER → 2021-07-23 07:40 | Outpatient (ROUT) | payer OTHER, SELFPAY ==
[2021-07-23 07:51] LABS: INR 2.2 (0.9-1.3); Prothrombin Time 25.5 SECONDS (10.1-12.7)
== END ==
PROVIDERS: PCP Internal Medicine; Visit Provider Internal Medicine
DX: Z79.01 Long term (current) use of anticoagulants (principal)
CPT/HCPCS: 85610

== ENCOUNTER → 2021-08-20 07:53 | Outpatient (ROUT) | payer OTHER, SELFPAY ==
[2021-08-20 08:01] LABS: INR 2.4 (0.9-1.3); Prothrombin Time 27.5 SECONDS (10.1-12.7)
== END ==
PROVIDERS: PCP Internal Medicine; Visit Provider Internal Medicine
DX: Z79.01 Long term (current) use of anticoagulants (principal)
CPT/HCPCS: 85610

== ENCOUNTER → 2021-09-05 12:40 | Outpatient (CLI) | payer OTHER, SELFPAY ==
--- NOTE | 2021-09-05 12:42 | DI.MG.S_ITS ---
BILATERAL DIGITAL SCREENING MAMMOGRAM 3D/2D WITH CAD: 09/05/2021 CLINICAL: Routine screening. Comparison is made to exams dated: 09/06/2019 mammogram, 08/18/2017 mammogram, and 08/21/2015 mammogram - [facility]. There are scattered fibroglandular elements in both breasts. Current study was also evaluated with a Computer Aided Detection (CAD) system. There are benign vascular calcifications in the right breast. No significant masses, calcifications, or other findings are seen in either breast. There has been no significant interval change. IMPRESSION: BENIGN There is no mammographic evidence of malignancy. A 1 year screening mammogram is recommended. This exam was interpreted at Station ID: [id number]. NOTE: For mammograms, a report in lay terms will be sent to the patient. Approximately 15% of breast malignancies will not be visualized mammographically. In the management of a palpable breast mass, a negative mammogram must not discourage biopsy of a clinically suspicious lesion. Electronically Signed By: Faustino Coates acr/penrad:09/05/2021 13:50:30 letter sent: Normal Exam ACR BI-RADS Category 2: Benign Finding(s) 3342F
== END ==
PROVIDERS: PCP Internal Medicine; Referring Provider Internal Medicine; Visit Provider Internal Medicine
DX: Z12.31 Encounter for screening mammogram for malignant neoplasm of breast (principal)
CPT/HCPCS: 77063; 77067

== ENCOUNTER → 2021-09-17 08:24 | Outpatient (ROUT) | payer OTHER, SELFPAY ==
[2021-09-17 08:36] LABS: INR 2.3 (0.9-1.3); Prothrombin Time 26.2 SECONDS (10.1-12.7)
== END ==
PROVIDERS: PCP Internal Medicine; Visit Provider Internal Medicine
DX: Z79.01 Long term (current) use of anticoagulants (principal)
CPT/HCPCS: 85610

== ENCOUNTER → 2021-10-15 08:34 | Outpatient (ROUT) | payer OTHER, SELFPAY ==
[2021-10-15 08:43] LABS: INR 2.5 (0.9-1.3); Prothrombin Time 28.9 SECONDS (10.1-12.7)
== END ==
PROVIDERS: PCP Internal Medicine; Visit Provider Internal Medicine
DX: Z79.01 Long term (current) use of anticoagulants (principal)
CPT/HCPCS: 85610

== ENCOUNTER → 2021-11-12 07:53 | Outpatient (ROUT) | payer OTHER, SELFPAY ==
[2021-11-12 08:33] LABS: INR 3.2 (0.9-1.3); Prothrombin Time 36.9 SECONDS (10.1-12.7)
== END ==
PROVIDERS: PCP Internal Medicine; Visit Provider Internal Medicine
DX: Z79.01 Long term (current) use of anticoagulants (principal)
CPT/HCPCS: 85610

== ENCOUNTER → 2021-11-26 07:48 | Outpatient (ROUT) | payer OTHER, SELFPAY ==
[2021-11-26 08:05] LABS: INR 2.3 (0.9-1.3)
== END ==
PROVIDERS: PCP Internal Medicine; Visit Provider Internal Medicine
DX: Z79.01 Long term (current) use of anticoagulants (principal)
CPT/HCPCS: 85610

== ENCOUNTER → 2021-12-24 08:59 | Outpatient (ROUT) | payer OTHER, SELFPAY ==
[2021-12-24 09:12] LABS: INR 2.9 (0.9-1.3); Prothrombin Time 33.4 SECONDS (10.1-12.7)
== END ==
PROVIDERS: PCP Internal Medicine; Visit Provider Internal Medicine
DX: Z79.01 Long term (current) use of anticoagulants (principal)
CPT/HCPCS: 85610

== ENCOUNTER → 2022-01-21 08:27 | Outpatient (ROUT) | payer OTHER, SELFPAY ==
[2022-01-21 08:36] LABS: INR 2.8 (0.9-1.3)
== END ==
PROVIDERS: PCP Internal Medicine; Visit Provider Family Medicine
DX: Z79.01 Long term (current) use of anticoagulants (principal)
CPT/HCPCS: 85610

== ENCOUNTER → 2022-02-18 08:09 | Outpatient (ROUT) | payer OTHER, SELFPAY ==
[2022-02-18 08:23] LABS: INR 3.2 (0.9-1.3); Prothrombin Time 37.2 SECONDS (10.1-12.7)
== END ==
PROVIDERS: Family Provider Internal Medicine; PCP Internal Medicine; Visit Provider Internal Medicine
DX: Z79.01 Long term (current) use of anticoagulants (principal)
CPT/HCPCS: 85610

== ENCOUNTER → 2022-03-04 15:17 | Outpatient (ROUT) | payer OTHER, SELFPAY ==
[2022-03-04 16:08] LABS: Influenza A - CEPHEID Flu A NEGATIVE (NEGATIVE); Influenza B - CEPHEID Flu B NEGATIVE (NEGATIVE); Respiratory Syncytial Virus Negative (Negative)
[2022-03-04 16:11] LABS: COVID-19 CEPHEID 4-PLEX PCR Negative (Negative)
== END ==
PROVIDERS: Family Provider Internal Medicine; PCP Internal Medicine; Visit Provider Family Medicine
DX: R09.81 Nasal congestion (principal); R51.9 Headache, unspecified; Z20.822 Contact with and (suspected) exposure to COVID-19
CPT/HCPCS: 0241U

== ENCOUNTER → 2022-03-13 11:10 | Outpatient (CLI) | payer OTHER, SELFPAY ==
--- NOTE | 2022-03-13 | DI.US.S_ITS ---
PROCEDURE: US PELVIC COMPLETE INDICATIONS: MIXED INCONTINENCE/HX OF OVARIAN CYST TECHNIQUE: Real-time scanning was performed of the pelvic organs, with image documentation. Additional endovaginal scanning was necessary due to incomplete visualization of the adnexal and endometrial structures by transabdominal scanning. COMPARISON: None. FINDINGS: Uterus: Uterus is anteverted and normal in size at 7.1 x 3.6 x 2.6 cm. The myometrium is homogeneous. The endometrium measures 2.6 mm combined thickness. There is fluid in the endometrial canal. There is an echogenic linear structure in the lower uterine segment on the right measuring 5 x 2 mm. Ovaries: Status post right oophorectomy. The left ovary is normal in size and appearance with less than 12 follicles. Other: No pathologic free abdominal or pelvic fluid. IMPRESSION: 1. Normal left ovary. Status post right oophorectomy. 2. Normal endometrial thickness. 3. A 5 x 2 mm linear echogenic structure in the lower uterine segment on the right is likely inconsequential unless the patient has had a prior IUD in which case a displaced IUD could be considered. We strive to produce accurate, complete, and clear reports of imaging services. To assist us in improving patient care, this report was composed using standard report templates and voice recognition software. Therefore, it may contain abnormal punctuation, insertions and/or omissions. Occasional wrong-word or sound-alike substitutions may occur. Though we review the report and make efforts to correct it, we do recommend that the report be read carefully in proper context to recognize any text inaccuracies. Dictated by: Faustino Coates M.D. on 03/13/2022 at 13:25 Approved by: Faustino Coates M.D. on 03/13/2022 at 13:29
== END ==
PROVIDERS: Family Provider Internal Medicine; PCP Internal Medicine; Referring Provider Internal Medicine; Visit Provider Internal Medicine
DX: N39.46 Mixed incontinence (principal); Z87.42 Personal history of other diseases of the female genital tract; Z90.721 Acquired absence of ovaries, unilateral
CPT/HCPCS: 76830; 76856

== ENCOUNTER → 2022-03-18 08:40 | Outpatient (ROUT) | payer OTHER, SELFPAY ==
[2022-03-18 08:56] LABS: INR 3.4 (0.9-1.3)
== END ==
PROVIDERS: Family Provider Internal Medicine; PCP Internal Medicine; Visit Provider Internal Medicine
DX: I48.91 Unspecified atrial fibrillation (principal); Z79.01 Long term (current) use of anticoagulants
CPT/HCPCS: 85610

== ENCOUNTER → 2022-04-09 07:47 | Outpatient (ROUT) | payer OTHER, SELFPAY ==
[2022-04-09 07:55] LABS: INR 2.2 (0.9-1.3); Prothrombin Time 25.7 SECONDS (10.1-12.7)
== END ==
PROVIDERS: Family Provider Internal Medicine; PCP Internal Medicine; Visit Provider Internal Medicine
DX: Z79.01 Long term (current) use of anticoagulants (principal)
CPT/HCPCS: 85610

== ENCOUNTER → 2022-04-11 13:12 | Outpatient (CLI) | payer OTHER, SELFPAY ==
--- NOTE | 2022-04-11 | DI.US.S_ITS ---
PROCEDURE: US RENAL COMPLETE INDICATIONS: Mixed incontinence TECHNIQUE: Real-time scanning was performed of the kidneys and bladder, with image documentation. COMPARISON: None. FINDINGS: Kidneys: Right kidney measures 10.5 cm. No hydronephrosis. No renal calculi. Left kidney measures 9.5 cm. No hydronephrosis. No renal calculi. Bladder: Bilateral ureteral jets are visualized. No significant postvoid residual. Miscellaneous: No free pelvic fluid. IMPRESSION: Retroperitoneal ultrasound without significant sonographic abnormality of the kidneys or bladder. Dictated by: Wade Trujillo M.D. on 04/11/2022 at 14:42 Approved by: Wade Trujillo M.D. on 04/11/2022 at 14:43
== END ==
PROVIDERS: Family Provider Internal Medicine; PCP Internal Medicine; Referring Provider Internal Medicine; Visit Provider Internal Medicine
DX: N39.46 Mixed incontinence (principal)
CPT/HCPCS: 76770

== ENCOUNTER 2022-05-02 09:45 | Outpatient (RCR) | payer OTHER, SELFPAY ==
--- NOTE | 2022-02-06 16:56 | PT.OIE ---
Current Diagnoses Mixed incontinence (02/06/22) Pelvic muscle wasting (02/06/22) Past Medical History (Last Updated 06/12/20 @ 12:28 by Shonda Trujillo PA-C) Anemia (~1959) Cervical spine disease (~2004) Chicken pox (~195) Colon polyps (~2009) Diverticular disease (~1971) Fall from ladder Fibroids (~1994) Hemorrhoid (~1967) Human papilloma virus (~2005) Hyperlipidemia Left hip pain Low back pain Lumbar spine pain (~2005) Osteoporosis Past Surgical History (Last Updated 09/08/17 @ 09:49 by Elva Gtz) Anesthesia History of tonsillectomy Normal colonoscopy (~2013) Status post appendectomy Status post dilation and curettage Status post ovarian cystectomy Status post tubal ligation Visit Care Team Role Provider Type MYRON Jack Attending Provider Advanced Shot Packer Family Provider Primary Care Provider Referring Provider Specialty: [facility] Address: [address] [place] [address], [facility] Email: [email or web address] Physical Therapy Initial Evaluation PT-OP-A Visit Information Start: 02/06/22 09:39 Freq: Status: Active Protocol: Document 02/06/22 11:25 [facility] (Rec: 02/06/22 12:02 [facility] [id number]) Out-Patient Physical Therapy Visit Information Visit Information Visit Type Initial Evaluation Visit Start Time 11:20 Visit Stop Time 12:00 Total Visit Minutes 40 Visit Number 1 PT-OP-B Current Condition Start: 02/06/22 09:39 Freq: Status: Active Protocol: Document 02/06/22 11:25 [facility] (Rec: 02/06/22 12:02 [facility] [id number]) Current Condition History of Current Condition Onset Date chronic but worsening over time Current Complaints urinary stress incontinence, urinary urgency History of Current Condition pt reports if she sneezes she will leak, and in her pilates class she will leak, she has been experience these symptoms since she wasd 40 years old. She will get the urge to void if she is walking into a bathroom and has to go bad. She wears nicks unders but uses pads for pilates class 2012 she had a small perferation in her colon and was in the hospital x 4 days. She is set up for a CT scan looking at her ovary. SHe had her left ovary taken out when she had her appendix taken out in 1994. A cyst was seen on her right side. She has been eating 2 figs per day and this gives her a daily bowel movement x 2 months. Before this she was constipated daily . 1 vaginal delivery. Treatment Goals Patient/Caregiver Goals pt goals are to eliminate leakage and to improve pelvic floor strength PT-OP-F Manual Assessment Start: 02/06/22 09:39 Freq: Status: Active Protocol: Document 02/06/22 11:15 [facility] (Rec: 02/12/22 16:36 [facility] [id number]) Manual Assessments Soft Tissue Assessment Soft Tissue Mobility Assessment restrictions in the upper abdominal fascia and diaphragm , oblique abdominal tightness and fascial restrictions PT-OP-I Pelvic Floor Start: 02/06/22 09:39 Freq: Status: Active Protocol: Document 02/06/22 11:15 [facility] (Rec: 02/12/22 11:13 [facility] [id number]) Pelvic Floor Assessment Urine Pelvic Floor Surgery No Urinary Symptoms Urge Sensation Other Urinary Symptoms urinary stress incontinence Leakage Size Medium Leakage Cause Cough,Exercise Other Leakage Causes pt reports she will leak through her underware and is wearing washable pads Pelvic Clock Pelvic Clock 12-3 Atrophy Pelvic Clock 3-6 Atrophy,Tightness Pelvic Clock 6-9 Atrophy,Tightness Pelvic Clock 9-12 Atrophy Pelvic Clock Other tightness and guarding in the pelvic clock from 3-6 and 6-9 SEMG (uV) Baseline 5.1 10 Second Contraction 8.7 Recruitment Pattern Fair Relaxation Fair Holding Fair Stability of Hold Fair SEMG Stability of Rest Fair Contraction Ability Voluntary Contraction Weak Voluntary Relaxation Weak Manual Muscle Testing Left 3 Manual Muscle Testing Right 3 Manual Muscle Testing Anterior 3 Manual Muscle Testing Posterior 3 Muscle Endurance (Seconds) 6 Comments Pelvic Floor Comments kristen tends to use her upper abdominal wall to substitute for pelvic floor contractions, she is guarded in the pelvic floor from 3-6 and 6-9 in the pelvic clock. She is able to facilitate all aspects of her pelvic floor but has difficulty relaxing PT-OP-J Posture/Palpation/Skin Start: 02/06/22 09:39 Freq: Status: Active Protocol: Document 02/06/22 11:15 [facility] (Rec: 02/12/22 16:35 [facility] [id number]) Palpation Assessment Location oblique attachment to the rib cage Palpation Findings Soft Tissue Tightness Palpation Details pt tends to engage her obliques when attempting to engage her pelvic floor and is tight in the attachments to the rib cage levator ani Palpation Location levator ani Palpation Findings Soft Tissue Tightness,Muscle Guarding PT-OP-Q Treatments Start: 02/06/22 09:39 Freq: Status: Active Protocol: Document 02/06/22 11:15 [facility] (Rec: 02/12/22 16:39 [facility] [id number]) Therapeutic Exercises Supine Exercises diaphragmatic breathing Reps/Minutes emphasis on upper abdominal relaxation pelvic floor long holds Side bilateral Reps/Minutes x 10 reps 10 seconds on and 10 seconds off PT-OP-T Assessment and Plan Start: 02/06/22 09:39 Freq: Status: Active Protocol: Document 02/06/22 11:15 [facility] (Rec: 02/12/22 11:13 [facility] [id number]) Physical Therapy Assessment Rehab Potential Rehabilitation Potential Excellent Evaluation Complexity Number of Personal Factors/Comorbidities 0 Number of Body Systems Impaired 1-2 Clinical Presentation at Evaluation Stable Impairments Impairments Activity Tolerance,Soft Tissue Mobility,Strength Other Impairments urinary urgency and mixed incontinence Goals 4 Impairment upper abdominal substitution when attempting to contract the pelvic floor, tightness of the oblique abdominal muscles Door Puller Goal (LTG) Kristen is able to perform diaphragmatic breathing with proper rib cage excursion and is able to islolate her pelvic floor muscles without upper abdominal substitution LTG Duration 12 weeks 3 Impairment Decreased endurance of the pelvic floor muscles, decreased ability to sustain a pelvic floor contraction Short Term Goal (STG) Kristen is able to contract her pelvic floor and sustain a contraction x 10 seconds in supine STG Duration x 6 weeks Shelter Goal (LTG) Kristen is able to sustain a pelvic floor contraction x 10 seconds in standing LTG Duration x 12 weeks 2 Impairment urinary stress incontinence symptoms Door Puller Goal (LTG) Kristen reports a overall reducation in urinary stress incontinence and is able to go through a whole pilates class without leakage LTG Duration 12 weeks 1 Impairment limited water intake during the day and diet includes bladder irritants Short Term Goal (STG) Kristen is educated on the importance of drinking water to flush out her bladder as well as limiting bladder irritants to help with urgency STG Duration 3 weeks Assessment Summary Assessment Kristen is a 76 year old female referred to PT with c/o mixed incontinence symptoms and urgency to void. She exercises regularly and does both pilates as well as Yoga. Kristen reports she has tried working on pelvic floor exercises on her own at home. She wears washable pads and washable underware for protection from leakage. Bladder irritants were reviewed today with Kristen and she was given a bladder diary to track her voids. She currently estimates that she drinks 2-3 glasses of water per day, 1 large cup of coffee in the am and 2 glasses of wine at night. We talked about increasing her water intate during the day and she was educated on bladder irritation with concentrated urine. With evaluation Kristen is able to contract all of her pelvic muscles but tests 3/5 MMT and she lacks ability to sustain a contraction for a full 10 seconds. She tends to substitute with her upper obliques when attemtping to facilitate a pelvic floor contraction. Kristen is a good candidate for Pelvic floor endurance training as well as bladder retraining and urge deference technique. Physical Therapy Plan Frequency and Duration Frequency of Treatment 1x/Week Duration of treatment (weeks) 12 Plan of Care Start Date 02/06/22 Plan of Care End Date 04/24/22 Therapeutic Interventions Therapeutic Interventions Home Exercise Program, Neuromuscular Re-education, Patient/Caregiver Education, Self-Care/Home Management, Therapeutic Exercises Modalities Biofeedback Next Visit Focus/Plan Next Note Type Treatment Note Next Visit Plan review bladder diary next visit, review bladder irritants and water intake, EMG biofeedback for pelvic floor endurance training
--- NOTE | 2022-02-06 16:57 | PT.OPPOC ---
Physical, Occupational & Speech Therapy At [facility] Current Diagnoses Mixed incontinence (02/06/22) Pelvic muscle wasting (02/06/22) Visit Care Team Role Provider Type MYRON Jack Attending Provider Advanced Optometric Tech Family Provider Primary Care Provider Referring Provider Specialty: Family Practice Address: [address] [place] [address], [facility] Email: [email or web address] Plan Of Care PT-OP-T Assessment and Plan Start: 02/06/22 09:39 Freq: Status: Active Protocol: Document 02/06/22 11:15 [facility] (Rec: 02/12/22 11:13 [facility] [id number]) Physical Therapy Assessment Rehab Potential Rehabilitation Potential Excellent Evaluation Complexity Number of Personal Factors/Comorbidities 0 Number of Body Systems Impaired 1-2 Clinical Presentation at Evaluation Stable Impairments Impairments Activity Tolerance,Soft Tissue Mobility,Strength Other Impairments urinary urgency and mixed incontinence Goals 4 Impairment upper abdominal substitution when attempting to contract the pelvic floor, tightness of the oblique abdominal muscles Tool Grinding Machine Operator Goal (LTG) Kristen is able to perform diaphragmatic breathing with proper rib cage excursion and is able to isolate her pelvic floor muscles without upper abdominal substitution LTG Duration 12 weeks 3 Impairment Decreased endurance of the pelvic floor muscles, decreased ability to sustain a pelvic floor contraction Short Term Goal (STG) Kristen is able to contract her pelvic floor and sustain a contraction x 10 seconds in supine STG Duration x 6 weeks Tool Grinding Machine Operator Goal (LTG) Kristen is able to sustain a pelvic floor contraction x 10 seconds in standing LTG Duration x 12 weeks 2 Impairment urinary stress incontinence symptoms Group Home Goal (LTG) Kristen reports a overall reeducation in urinary stress incontinence and is able to go through a whole pilates class without leakage LTG Duration 12 weeks 1 Impairment limited water intake during the day and diet includes bladder irritants Short Term Goal (STG) Kristen is educated on the importance of drinking water to flush out her bladder as well as limiting bladder irritants to help with urgency STG Duration 3 weeks Assessment Summary Assessment Kristen is a 76 year old female referred to PT with c/o mixed incontinence symptoms and urgency to void. She exercises regularly and does both pilates as well as Yoga. Kristen reports she has tried working on pelvic floor exercises on her own at home. She wears washable pads and washable underware for protection from leakage. Bladder irritants were reviewed today with Kristen and she was given a bladder diary to track her voids. She currently estimates that she drinks 2-3 glasses of water per day, 1 large cup of coffee in the am and 2 glasses of wine at night. We talked about increasing her water intate during the day and she was educated on bladder irritation with concentrated urine. With evaluation Kristen is able to contract all of her pelvic muscles but tests 3/5 MMT and she lacks ability to sustain a contraction for a full 10 seconds. She tends to substitute with her upper obliques when attempting to facilitate a pelvic floor contraction. Kristen is a good candidate for Pelvic floor endurance training as well as bladder retraining and urge deference technique. Physical Therapy Plan Frequency and Duration Frequency of Treatment 1x/Week Duration of treatment (weeks) 12 Plan of Care Start Date 02/06/22 Plan of Care End Date 04/24/22 Therapeutic Interventions Therapeutic Interventions Home Exercise Program, Neuromuscular Re-education, Patient/Caregiver Education, Self-Care/Home Management, Therapeutic Exercises Modalities Biofeedback Next Visit Focus/Plan Next Note Type Treatment Note Next Visit Plan review bladder diary next visit, review bladder irritants and water intake, EMG biofeedback for pelvic floor endurance training Plan of Care Dates Plan of Care Start Date 02/06/22 Plan of Care End Date 04/24/22 Electronically Signed by: Sushma Herr, PT 02/12/22 1880 If you are in agreement with this Plan of Care, please return a signed and dated copy. I have reviewed this Plan of Care and certify that the skilled therapy services above are required to meet the patient?s needs. Physician Signature Date Printed Name and Credentials Clinical Instructor Signature Printed Name and Credentials
--- NOTE | 2022-02-14 17:46 | PT.OTN ---
Current Diagnoses Mixed incontinence (02/14/22) Pelvic muscle wasting (02/14/22) Physical Therapy Treatment Note PT-OP-A Visit Information Start: 02/06/22 09:39 Freq: Status: Active Protocol: Document 02/14/22 13:01 [facility] (Rec: 02/14/22 13:51 [facility] [id number]) Out-Patient Physical Therapy Visit Information Visit Information Visit Type Treatment Note Visit Start Time 13:00 Visit Stop Time 13:45 Total Visit Minutes 45 Visit Number 2 PT-OP-B Current Condition Start: 02/06/22 09:39 Freq: Status: Active Protocol: Document 02/06/22 11:25 [facility] (Rec: 02/06/22 12:02 [facility] [id number]) Current Condition History of Current Condition Onset Date chronic but worsening over time Current Complaints urinary stress incontinence, urinary urgency History of Current Condition pt reports if she sneezes she will leak, and in her pilates class she will leak, she has been experience these symptoms since she wasd 40 years old. She will get the urge to void if she is walking into a bathroom and has to go bad. She wears nicks unders but uses pads for pilates class 2012 she had a small perferation in her colon and was in the hospital x 4 days. She is set up for a CT scan looking at her ovary. SHe had her left ovary taken out when she had her appendix taken out in 1994. A cyst was seen on her right side. She has been eating 2 figs per day and this gives her a daily bowel movement x 2 months. Before this she was constipated daily . 1 vaginal delivery. Treatment Goals Patient/Caregiver Goals pt goals are to eliminate leakage and to improve pelvic floor strength PT-OP-C Subjective Start: 02/06/22 09:39 Freq: Status: Active Protocol: Document 02/14/22 13:01 [facility] (Rec: 02/14/22 13:51 [facility] [id number]) OP-PT Subjective Patient Comments Patient Comments pt has been increasing the water, she hasn't been leaking or had the urgency this week PT-OP-F Manual Assessment Start: 02/06/22 09:39 Freq: Status: Active Protocol: Document 02/06/22 11:15 [facility] (Rec: 02/12/22 16:36 [facility] [id number]) Manual Assessments Soft Tissue Assessment Soft Tissue Mobility Assessment restrictions in the upper abdominal fascia and diaphragm , oblique abdominal tightness and fascial restrictions PT-OP-I Pelvic Floor Start: 02/06/22 09:39 Freq: Status: Active Protocol: Document 02/06/22 11:15 [facility] (Rec: 02/12/22 11:13 [facility] [id number]) Pelvic Floor Assessment Urine Pelvic Floor Surgery No Urinary Symptoms Urge Sensation Other Urinary Symptoms urinary stress incontinence Leakage Size Medium Leakage Cause Cough,Exercise Other Leakage Causes pt reports she will leak through her underware and is wearing washable pads Pelvic Clock Pelvic Clock 12-3 Atrophy Pelvic Clock 3-6 Atrophy,Tightness Pelvic Clock 6-9 Atrophy,Tightness Pelvic Clock 9-12 Atrophy Pelvic Clock Other tightness and guarding in the pelvic clock from 3-6 and 6-9 SEMG (uV) Baseline 5.1 10 Second Contraction 8.7 Recruitment Pattern Fair Relaxation Fair Holding Fair Stability of Hold Fair SEMG Stability of Rest Fair Contraction Ability Voluntary Contraction Weak Voluntary Relaxation Weak Manual Muscle Testing Left 3 Manual Muscle Testing Right 3 Manual Muscle Testing Anterior 3 Manual Muscle Testing Posterior 3 Muscle Endurance (Seconds) 6 Comments Pelvic Floor Comments clint tends to use her upper abdominal wall to substitute for pelvic floor contractions, she is guarded in the pelvic floor from 3-6 and 6-9 in the pelvic clock. She is able to facilitate all aspects of her pelvic floor but has difficulty relaxing PT-OP-J Posture/Palpation/Skin Start: 02/06/22 09:39 Freq: Status: Active Protocol: Document 02/06/22 11:15 [facility] (Rec: 02/12/22 16:35 [facility] [id number]) Palpation Assessment Location oblique attachment to the rib cage Palpation Findings Soft Tissue Tightness Palpation Details pt tends to engage her obliques when attempting to engage her pelvic floor and is tight in the attachments to the rib cage levator ani Palpation Location levator ani Palpation Findings Soft Tissue Tightness,Muscle Guarding PT-OP-Q Treatments Start: 02/06/22 09:39 Freq: Status: Active Protocol: Document 02/14/22 13:01 [facility] (Rec: 02/14/22 13:51 [facility] [id number]) Therapeutic Exercises Supine Exercises ball squeeze with pelvic floor contraction Reps/Minutes x 10 reps pelvic floor quick contractions Reps/Minutes x 10 reps diaphragmatic breathing Reps/Minutes emphasis on upper abdominal relaxation pelvic floor long holds Side bilateral Reps/Minutes x 10 reps 10 seconds on and 10 seconds off Self-Care/Home Management Treatment Education Other Education worked on bladder retraining and squeeze prior to sneezing Activities Self-Care/Home Management Activities pt is educated in bladder retraining/urge deference technique PT-OP-T Assessment and Plan Start: 02/06/22 09:39 Freq: Status: Active Protocol: Document 02/14/22 13:00 [facility] (Rec: 02/14/22 17:46 [facility] [id number]) Physical Therapy Assessment Assessment Summary Assessment Clint has done really well this week with adding in more water, she has noted decreased urgency as well as leakage. She does note breast tenderness after taking the vaginal estrogen so I did tell her to talk to Simran Brunner about this. She did better today with pelvic floor activation without as much upper abdominal substitution Physical Therapy Plan Frequency and Duration Frequency of Treatment 1x/Week Duration of treatment (weeks) 12 Plan of Care Start Date 02/06/22 Plan of Care End Date 04/24/22 Next Visit Focus/Plan Next Note Type Treatment Note Next Visit Plan review bladder diary next visit, review bladder irritants and water intake, EMG biofeedback for pelvic floor endurance training
--- NOTE | 2022-02-19 18:07 | PT.OTN ---
Current Diagnoses Mixed incontinence (02/19/22) Pelvic muscle wasting (02/19/22) Physical Therapy Treatment Note PT-OP-A Visit Information Start: 02/06/22 09:39 Freq: Status: Active Protocol: Document 02/19/22 13:07 [facility] (Rec: 02/19/22 13:44 [facility] [id number]) Out-Patient Physical Therapy Visit Information Visit Information Visit Type Treatment Note Visit Start Time 13:00 Visit Stop Time 13:45 Total Visit Minutes 45 Visit Number 3 PT-OP-B Current Condition Start: 02/06/22 09:39 Freq: Status: Active Protocol: Document 02/06/22 11:25 [facility] (Rec: 02/06/22 12:02 [facility] [id number]) Current Condition History of Current Condition Onset Date chronic but worsening over time Current Complaints urinary stress incontinence, urinary urgency History of Current Condition pt reports if she sneezes she will leak, and in her pilates class she will leak, she has been experience these symptoms since she wasd 40 years old. She will get the urge to void if she is walking into a bathroom and has to go bad. She wears nicks unders but uses pads for pilates class 2012 she had a small perferation in her colon and was in the hospital x 4 days. She is set up for a CT scan looking at her ovary. SHe had her left ovary taken out when she had her appendix taken out in 1994. A cyst was seen on her right side. She has been eating 2 figs per day and this gives her a daily bowel movement x 2 months. Before this she was constipated daily . 1 vaginal delivery. Treatment Goals Patient/Caregiver Goals pt goals are to eliminate leakage and to improve pelvic floor strength PT-OP-C Subjective Start: 02/06/22 09:39 Freq: Status: Active Protocol: Document 02/19/22 13:07 [facility] (Rec: 02/19/22 13:44 [facility] [id number]) OP-PT Subjective Patient Comments Patient Comments pt notes she has had a few times this week where she has had a significant leak, there are other times when she is staying dry. She is not sure what is causing the change in her symptoms. She did stop taking the estrogen cream and notes her breast tenderness disappeared Patient Reported Progress Improving PT-OP-F Manual Assessment Start: 02/06/22 09:39 Freq: Status: Active Protocol: Document 02/06/22 11:15 [facility] (Rec: 02/12/22 16:36 [facility] [id number]) Manual Assessments Soft Tissue Assessment Soft Tissue Mobility Assessment restrictions in the upper abdominal fascia and diaphragm , oblique abdominal tightness and fascial restrictions PT-OP-I Pelvic Floor Start: 02/06/22 09:39 Freq: Status: Active Protocol: Document 02/06/22 11:15 [facility] (Rec: 02/12/22 11:13 [facility] [id number]) Pelvic Floor Assessment Urine Pelvic Floor Surgery No Urinary Symptoms Urge Sensation Other Urinary Symptoms urinary stress incontinence Leakage Size Medium Leakage Cause Cough,Exercise Other Leakage Causes pt reports she will leak through her underware and is wearing washable pads Pelvic Clock Pelvic Clock 12-3 Atrophy Pelvic Clock 3-6 Atrophy,Tightness Pelvic Clock 6-9 Atrophy,Tightness Pelvic Clock 9-12 Atrophy Pelvic Clock Other tightness and guarding in the pelvic clock from 3-6 and 6-9 SEMG (uV) Baseline 5.1 10 Second Contraction 8.7 Recruitment Pattern Fair Relaxation Fair Holding Fair Stability of Hold Fair SEMG Stability of Rest Fair Contraction Ability Voluntary Contraction Weak Voluntary Relaxation Weak Manual Muscle Testing Left 3 Manual Muscle Testing Right 3 Manual Muscle Testing Anterior 3 Manual Muscle Testing Posterior 3 Muscle Endurance (Seconds) 6 Comments Pelvic Floor Comments clint tends to use her upper abdominal wall to substitute for pelvic floor contractions, she is guarded in the pelvic floor from 3-6 and 6-9 in the pelvic clock. She is able to facilitate all aspects of her pelvic floor but has difficulty relaxing PT-OP-J Posture/Palpation/Skin Start: 02/06/22 09:39 Freq: Status: Active Protocol: Document 02/06/22 11:15 [facility] (Rec: 02/12/22 16:35 [facility] [id number]) Palpation Assessment Location oblique attachment to the rib cage Palpation Findings Soft Tissue Tightness Palpation Details pt tends to engage her obliques when attempting to engage her pelvic floor and is tight in the attachments to the rib cage levator ani Palpation Location levator ani Palpation Findings Soft Tissue Tightness,Muscle Guarding PT-OP-Q Treatments Start: 02/06/22 09:39 Freq: Status: Active Protocol: Document 02/19/22 13:07 [facility] (Rec: 02/19/22 13:44 [facility] [id number]) Therapeutic Exercises Supine Exercises clam shells Reps/Minutes 3 x 10 reps ball squeeze with pelvic floor contraction Comments 7.6 max of 38.4 pelvic floor quick contractions Reps/Minutes x 10 reps diaphragmatic breathing Reps/Minutes x 6 reps inhale x 4 exhale x 6 pelvic floor long holds Reps/Minutes x 10 reps Comments educated pt on elevating her pelvis for improved pelvic floor facilitation PT-OP-T Assessment and Plan Start: 02/06/22 09:39 Freq: Status: Active Protocol: Document 02/19/22 13:07 [facility] (Rec: 02/19/22 18:02 [facility] [id number]) Physical Therapy Assessment Assessment Summary Assessment Clint had more difficulty with endurance contractions today, we worked on elevating her pelvis and this made it easier for her. Ball squeeze assist also helps. 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 I had her discontinue double leg lowering that she was doing in pilates as this puts a great deal of tension on the pelvic floor. Physical Therapy Plan Frequency and Duration Frequency of Treatment 1x/Week Duration of treatment (weeks) 12 Plan of Care Start Date 02/06/22 Plan of Care End Date 04/24/22 Therapeutic Interventions Therapeutic Interventions Home Exercise Program, Neuromuscular Re-education, Patient/Caregiver Education, Self-Care/Home Management, Therapeutic Exercises Modalities Biofeedback Next Visit Focus/Plan Next Note Type Treatment Note Next Visit Plan review bladder diary next visit, review bladder irritants and water intake, EMG biofeedback for pelvic floor endurance training
--- NOTE | 2022-03-21 18:11 | PT.OTN ---
Current Diagnoses Mixed incontinence (03/21/22) Pelvic muscle wasting (03/21/22) Physical Therapy Treatment Note PT-OP-A Visit Information Start: 02/06/22 09:39 Freq: Status: Active Protocol: Document 03/21/22 10:38 [facility] (Rec: 03/21/22 10:55 [facility] [id number]) Out-Patient Physical Therapy Visit Information Visit Information Visit Type Treatment Note Visit Start Time 10:38 Visit Stop Time 11:20 Total Visit Minutes 42 Visit Number 4 PT-OP-B Current Condition Start: 02/06/22 09:39 Freq: Status: Active Protocol: Document 02/06/22 11:25 [facility] (Rec: 02/06/22 12:02 [facility] [id number]) Current Condition History of Current Condition Onset Date chronic but worsening over time Current Complaints urinary stress incontinence, urinary urgency History of Current Condition pt reports if she sneezes she will leak, and in her pilates class she will leak, she has been experience these symptoms since she wasd 40 years old. She will get the urge to void if she is walking into a bathroom and has to go bad. She wears nicks unders but uses pads for pilates class 2012 she had a small perferation in her colon and was in the hospital x 4 days. She is set up for a CT scan looking at her ovary. SHe had her left ovary taken out when she had her appendix taken out in 1994. A cyst was seen on her right side. She has been eating 2 figs per day and this gives her a daily bowel movement x 2 months. Before this she was constipated daily . 1 vaginal delivery. Treatment Goals Patient/Caregiver Goals pt goals are to eliminate leakage and to improve pelvic floor strength PT-OP-C Subjective Start: 02/06/22 09:39 Freq: Status: Active Protocol: Document 03/21/22 10:38 [facility] (Rec: 03/21/22 10:55 [facility] [id number]) OP-PT Subjective Patient Comments Patient Comments pt had a bad sinus infection the last 20 days so she just got started, now she is on two days a week of estrogen suppositories two times per weeks, pilates causes leakage, sometimes she is leaking with walking. SHe is trying to keep drinking water. PT-OP-F Manual Assessment Start: 02/06/22 09:39 Freq: Status: Active Protocol: Document 02/06/22 11:15 [facility] (Rec: 02/12/22 16:36 [facility] [id number]) Manual Assessments Soft Tissue Assessment Soft Tissue Mobility Assessment restrictions in the upper abdominal fascia and diaphragm , oblique abdominal tightness and fascial restrictions PT-OP-I Pelvic Floor Start: 02/06/22 09:39 Freq: Status: Active Protocol: Document 03/21/22 10:55 [facility] (Rec: 03/21/22 11:14 [facility] [id number]) Pelvic Floor Assessment SEMG (uV) Baseline 0.5 PT-OP-J Posture/Palpation/Skin Start: 02/06/22 09:39 Freq: Status: Active Protocol: Document 02/06/22 11:15 [facility] (Rec: 02/12/22 16:35 [facility] [id number]) Palpation Assessment Location oblique attachment to the rib cage Palpation Findings Soft Tissue Tightness Palpation Details pt tends to engage her obliques when attempting to engage her pelvic floor and is tight in the attachments to the rib cage levator ani Palpation Location levator ani Palpation Findings Soft Tissue Tightness,Muscle Guarding PT-OP-Q Treatments Start: 02/06/22 09:39 Freq: Status: Active Protocol: Document 03/21/22 10:38 [facility] (Rec: 03/21/22 11:14 [facility] [id number]) Therapeutic Exercises Supine Exercises templates for coorditaion and eccentric control Reps/Minutes x 5 minutes clam shells Reps/Minutes 3 x 10 reps pelvic floor quick contractions Reps/Minutes x 10 reps pelvic floor long holds Reps/Minutes 4.5 max 20 Comments .5 resting tone Self-Care/Home Management Treatment Education Patient Education Home Exercise Program Other Education time was spent reviewing pressure systoms and the downward pressure down on the bladder with specific pilates exercises PT-OP-T Assessment and Plan Start: 02/06/22 09:39 Freq: Status: Active Protocol: Document 03/21/22 10:38 [facility] (Rec: 03/21/22 10:55 [facility] [id number]) Physical Therapy Assessment Goals 4 Impairment upper abdominal substitution when attempting to contract the pelvic floor, tightness of the oblique abdominal muscles [facility] Goal (LTG) Kristen is able to perform diaphragmatic breathing with proper rib cage excursion and is able to islolate her pelvic floor muscles without upper abdominal substitution LTG Duration 12 weeks 3 Impairment Decreased endurance of the pelvic floor muscles, decreased ability to sustain a pelvic floor contraction Short Term Goal (STG) Kristen is able to contract her pelvic floor and sustain a contraction x 10 seconds in supine STG Duration x 6 weeks Sort Worker Goal (LTG) Kristen is able to sustain a pelvic floor contraction x 10 seconds in standing LTG Duration x 12 weeks 2 Impairment urinary stress incontinence symptoms [facility] Goal (LTG) Kristen reports a overall reducation in urinary stress incontinence and is able to go through a whole pilates class without leakage LTG Duration 12 weeks 1 Impairment limited water intake during the day and diet includes bladder irritants Short Term Goal (STG) Kristen is educated on the importance of drinking water to flush out her bladder as well as limiting bladder irritants to help with urgency STG Duration 3 weeks Assessment Summary Assessment Kristen is still having difficulty with endurance of her pelvic floor. She has been sick x the past 3 weeks but I may do a trial of NMES with her next visit as endurance just seems difficult to strengthen Physical Therapy Plan Frequency and Duration Frequency of Treatment 1x/Week Duration of treatment (weeks) 12 Plan of Care Start Date 02/06/22 Plan of Care End Date 04/24/22 Next Visit Focus/Plan Next Note Type Treatment Note Next Visit Plan review bladder diary next visit, review bladder irritants and water intake, EMG biofeedback for pelvic floor endurance training, NMES for pelvic floor recruitment and endurance training
--- NOTE | 2022-04-10 13:04 | PT.OTN ---
Current Diagnoses Mixed incontinence (04/10/22) Pelvic muscle wasting (04/10/22) Physical Therapy Treatment Note PT-OP-A Visit Information Start: 02/06/22 09:39 Freq: Status: Active Protocol: Document 04/10/22 12:03 [facility] (Rec: 04/10/22 12:41 [facility] [id number]) Out-Patient Physical Therapy Visit Information Visit Information Visit Type Treatment Note Visit Start Time 12:05 Visit Stop Time 12:45 Total Visit Minutes 40 Visit Number 5 PT-OP-B Current Condition Start: 02/06/22 09:39 Freq: Status: Active Protocol: Document 02/06/22 11:25 [facility] (Rec: 02/06/22 12:02 [facility] [id number]) Current Condition History of Current Condition Onset Date chronic but worsening over time Current Complaints urinary stress incontinence, urinary urgency History of Current Condition pt reports if she sneezes she will leak, and in her pilates class she will leak, she has been experience these symptoms since she wasd 40 years old. She will get the urge to void if she is walking into a bathroom and has to go bad. She wears nicks unders but uses pads for pilates class 2012 she had a small perferation in her colon and was in the hospital x 4 days. She is set up for a CT scan looking at her ovary. SHe had her left ovary taken out when she had her appendix taken out in 1994. A cyst was seen on her right side. She has been eating 2 figs per day and this gives her a daily bowel movement x 2 months. Before this she was constipated daily . 1 vaginal delivery. Treatment Goals Patient/Caregiver Goals pt goals are to eliminate leakage and to improve pelvic floor strength PT-OP-C Subjective Start: 02/06/22 09:39 Freq: Status: Active Protocol: Document 04/10/22 12:03 [facility] (Rec: 04/10/22 12:41 [facility] [id number]) OP-PT Subjective Patient Comments Patient Comments pt notes she feels like there has been some improvement, she went for a walk without leakage, she is getting better at remembering to do exercises She has taken the hormone pellets x 3 months Tomorrow has a ultrasound on her kidney's to make sure everything is good. PT-OP-F Manual Assessment Start: 02/06/22 09:39 Freq: Status: Active Protocol: Document 02/06/22 11:15 [facility] (Rec: 02/12/22 16:36 [facility] [id number]) Manual Assessments Soft Tissue Assessment Soft Tissue Mobility Assessment restrictions in the upper abdominal fascia and diaphragm , oblique abdominal tightness and fascial restrictions PT-OP-I Pelvic Floor Start: 02/06/22 09:39 Freq: Status: Active Protocol: Document 04/10/22 12:41 [facility] (Rec: 04/10/22 12:47 [facility] [id number]) Pelvic Floor Assessment Urine Pelvic Floor Surgery No Urinary Symptoms Urge Sensation Other Urinary Symptoms urinary stress incontinence Leakage Size Medium Leakage Cause Cough,Exercise Other Leakage Causes pt reports she will leak through her underware and is wearing washable pads Pelvic Clock Pelvic Clock 12-3 Atrophy Pelvic Clock 3-6 Atrophy,Tightness Pelvic Clock 6-9 Atrophy,Tightness Pelvic Clock 9-12 Atrophy Pelvic Clock Other tightness and guarding in the pelvic clock from 3-6 and 6-9 SEMG (uV) Baseline 0.5 Contraction Ability Voluntary Contraction Weak Voluntary Relaxation Weak Manual Muscle Testing Left 3 Manual Muscle Testing Right 3 Manual Muscle Testing Anterior 3 Manual Muscle Testing Posterior 3 Muscle Endurance (Seconds) 6 Comments Pelvic Floor Comments clint tends to use her upper abdominal wall to substitute for pelvic floor contractions, she is guarded in the pelvic floor from 3-6 and 6-9 in the pelvic clock. She is able to facilitate all aspects of her pelvic floor but has difficulty relaxing PT-OP-J Posture/Palpation/Skin Start: 02/06/22 09:39 Freq: Status: Active Protocol: Document 02/06/22 11:15 [facility] (Rec: 02/12/22 16:35 [facility] [id number]) Palpation Assessment Location oblique attachment to the rib cage Palpation Findings Soft Tissue Tightness Palpation Details pt tends to engage her obliques when attempting to engage her pelvic floor and is tight in the attachments to the rib cage levator ani Palpation Location levator ani Palpation Findings Soft Tissue Tightness,Muscle Guarding PT-OP-Q Treatments Start: 02/06/22 09:39 Freq: Status: Active Protocol: Document 04/10/22 12:03 [facility] (Rec: 04/10/22 12:41 [facility] [id number]) Therapeutic Exercises Supine Exercises templates for coorditaion and eccentric control Supine Exercise Name working on eccentric lowering and coordination with EMG BIOFEEDBACK Reps/Minutes x 5 minutes pelvic floor quick contractions Reps/Minutes x 10 reps pelvic floor long holds Reps/Minutes 4.0 av 10.0 max Neuro Re-Education Treatment Other Activities NMES with vaginal sensor Details NMES with vaginal sensor Reps/Duration 10 min Comments NMES with the vagignal sensor to help with neuroawareness of pelvic floor contractions. PT able to increase intensity to level 18. Pt notes more sensation on the right but by the end of the treatment she could feel all aspects of the pelvic floor. PT-OP-T Assessment and Plan Start: 02/06/22 09:39 Freq: Status: Active Protocol: Document 04/10/22 12:03 [facility] (Rec: 04/10/22 12:47 [facility] [id number]) Physical Therapy Assessment Goals 4 Impairment upper abdominal substitution when attempting to contract the pelvic floor, tightness of the oblique abdominal muscles Manager Risk Management Goal (LTG) Clint is able to perform diaphragmatic breathing with proper rib cage excursion and is able to islolate her pelvic floor muscles without upper abdominal substitution LTG Duration 12 weeks 3 Impairment Decreased endurance of the pelvic floor muscles, decreased ability to sustain a pelvic floor contraction Short Term Goal (STG) Clint is able to contract her pelvic floor and sustain a contraction x 10 seconds in supine STG Duration x 6 weeks Manager Risk Management Goal (LTG) Clint is able to sustain a pelvic floor contraction x 10 seconds in standing LTG Duration x 12 weeks 2 Impairment urinary stress incontinence symptoms Alf Goal (LTG) Clint reports a overall reducation in urinary stress incontinence and is able to go through a whole pilates class without leakage LTG Duration 12 weeks 1 Impairment limited water intake during the day and diet includes bladder irritants Short Term Goal (STG) Clint is educated on the importance of drinking water to flush out her bladder as well as limiting bladder irritants to help with urgency STG Duration 3 weeks Assessment Summary Assessment Clint is doing better with walking and not having the leakage. I did begin NMES today for Clint and she responded well to this. She could feel more of her anterior pelvic floor by the end of the treatment. We will use the NMES for her next few visits to continue to increase her sensation. Physical Therapy Plan Frequency and Duration Frequency of Treatment 1x/Week Duration of treatment (weeks) 12 Plan of Care Start Date 02/06/22 Plan of Care End Date 04/24/22 Therapeutic Interventions Therapeutic Interventions Home Exercise Program, Neuromuscular Re-education, Patient/Caregiver Education, Self-Care/Home Management, Therapeutic Exercises Modalities Biofeedback Next Visit Focus/Plan Next Note Type Progress Note Next Visit Plan continue with NMES and try it first next visit prior to EMG biofeedback
--- NOTE | 2022-04-18 11:15 | PT.OTN ---
Current Diagnoses Mixed incontinence (04/18/22) Pelvic muscle wasting (04/18/22) Physical Therapy Treatment Note PT-OP-A Visit Information Start: 02/06/22 09:39 Freq: Status: Active Protocol: Document 04/18/22 09:48 [facility] (Rec: 04/18/22 10:30 [facility] [id number]) Out-Patient Physical Therapy Visit Information Visit Information Visit Type Progress Note Visit Start Time 09:48 Visit Stop Time 10:30 Total Visit Minutes 43 Visit Number 6 PT-OP-B Current Condition Start: 02/06/22 09:39 Freq: Status: Active Protocol: Document 02/06/22 11:25 [facility] (Rec: 02/06/22 12:02 [facility] [id number]) Current Condition History of Current Condition Onset Date chronic but worsening over time Current Complaints urinary stress incontinence, urinary urgency History of Current Condition pt reports if she sneezes she will leak, and in her pilates class she will leak, she has been experience these symptoms since she wasd 40 years old. She will get the urge to void if she is walking into a bathroom and has to go bad. She wears nicks unders but uses pads for pilates class 2012 she had a small perferation in her colon and was in the hospital x 4 days. She is set up for a CT scan looking at her ovary. SHe had her left ovary taken out when she had her appendix taken out in 1994. A cyst was seen on her right side. She has been eating 2 figs per day and this gives her a daily bowel movement x 2 months. Before this she was constipated daily . 1 vaginal delivery. Treatment Goals Patient/Caregiver Goals pt goals are to eliminate leakage and to improve pelvic floor strength PT-OP-C Subjective Start: 02/06/22 09:39 Freq: Status: Active Protocol: Document 04/18/22 09:48 [facility] (Rec: 04/18/22 10:30 [facility] [id number]) OP-PT Subjective Patient Comments Patient Comments pt notes she has three friends diagnosed with cancer and its been a hard week. She has not been drinking enough water PT-OP-F Manual Assessment Start: 02/06/22 09:39 Freq: Status: Active Protocol: Document 02/06/22 11:15 [facility] (Rec: 02/12/22 16:36 [facility] [id number]) Manual Assessments Soft Tissue Assessment Soft Tissue Mobility Assessment restrictions in the upper abdominal fascia and diaphragm , oblique abdominal tightness and fascial restrictions PT-OP-I Pelvic Floor Start: 02/06/22 09:39 Freq: Status: Active Protocol: Document 04/10/22 12:41 [facility] (Rec: 04/10/22 12:47 [facility] [id number]) Pelvic Floor Assessment Urine Pelvic Floor Surgery No Urinary Symptoms Urge Sensation Other Urinary Symptoms urinary stress incontinence Leakage Size Medium Leakage Cause Cough,Exercise Other Leakage Causes pt reports she will leak through her underware and is wearing washable pads Pelvic Clock Pelvic Clock 12-3 Atrophy Pelvic Clock 3-6 Atrophy,Tightness Pelvic Clock 6-9 Atrophy,Tightness Pelvic Clock 9-12 Atrophy Pelvic Clock Other tightness and guarding in the pelvic clock from 3-6 and 6-9 SEMG (uV) Baseline 0.5 Contraction Ability Voluntary Contraction Weak Voluntary Relaxation Weak Manual Muscle Testing Left 3 Manual Muscle Testing Right 3 Manual Muscle Testing Anterior 3 Manual Muscle Testing Posterior 3 Muscle Endurance (Seconds) 6 Comments Pelvic Floor Comments clint tends to use her upper abdominal wall to substitute for pelvic floor contractions, she is guarded in the pelvic floor from 3-6 and 6-9 in the pelvic clock. She is able to facilitate all aspects of her pelvic floor but has difficulty relaxing PT-OP-J Posture/Palpation/Skin Start: 02/06/22 09:39 Freq: Status: Active Protocol: Document 02/06/22 11:15 [facility] (Rec: 02/12/22 16:35 [facility] [id number]) Palpation Assessment Location oblique attachment to the rib cage Palpation Findings Soft Tissue Tightness Palpation Details pt tends to engage her obliques when attempting to engage her pelvic floor and is tight in the attachments to the rib cage levator ani Palpation Location levator ani Palpation Findings Soft Tissue Tightness,Muscle Guarding PT-OP-Q Treatments Start: 02/06/22 09:39 Freq: Status: Active Protocol: Document 04/18/22 09:48 [facility] (Rec: 04/18/22 10:30 [facility] [id number]) Therapeutic Exercises Supine Exercises templates for coorditaion and eccentric control Supine Exercise Name working on eccentric lowering and coordination with EMG BIOFEEDBACK Reps/Minutes x 5 minutes pelvic floor quick contractions Reps/Minutes x 10 reps pelvic floor long holds Reps/Minutes 9.5 uv max 18.4 Comments .5 uv rest Neuro Re-Education Treatment Other Activities NMES with vaginal sensor Details NMES with vaginal sensor Reps/Duration 10 min Comments NMES with the vaginal sensor to help with neuroawareness of pelvic floor contractions. PT able to feel the sensation at a low level of 8 to increase intensity to level 14 . Pt notes her sensation is very central. PT-OP-T Assessment and Plan Start: 02/06/22 09:39 Freq: Status: Active Protocol: Document 04/18/22 09:48 [facility] (Rec: 04/18/22 10:30 [facility] [id number]) Physical Therapy Assessment Goals 4 Impairment upper abdominal substitution when attempting to contract the pelvic floor, tightness of the oblique abdominal muscles Senior Administrative Associate Goal (LTG) Clint is able to perform diaphragmatic breathing with proper rib cage excursion and is able to islolate her pelvic floor muscles without upper abdominal substitution LTG Duration 12 weeks 3 Impairment Decreased endurance of the pelvic floor muscles, decreased ability to sustain a pelvic floor contraction Short Term Goal (STG) Clint is able to contract her pelvic floor and sustain a contraction x 10 seconds in supine STG Duration x 6 weeks Senior Administrative Associate Goal (LTG) Clint is able to sustain a pelvic floor contraction x 10 seconds in standing LTG Duration x 12 weeks 2 Impairment urinary stress incontinence symptoms Fci Goal (LTG) Clint reports a overall reducation in urinary stress incontinence and is able to go through a whole pilates class without leakage Leakage is more intermittent now and there are days that she is not leaking at all LTG Duration 12 weeks 1 Impairment limited water intake during the day and diet includes bladder irritants Short Term Goal (STG) Clint is educated on the importance of drinking water to flush out her bladder as well as limiting bladder irritants to help with urgency Clint is trying to increase her water intake, she notes some days she is better than STG Duration 3 weeks Assessment Summary Assessment pt does much better following the NMES and endurance much improved today Physical Therapy Plan Frequency and Duration Frequency of Treatment 1x/Week Duration of treatment (weeks) 6 Plan of Care Start Date 04/18/22 Plan of Care End Date 06/05/22 Next Visit Focus/Plan Next Note Type Treatment Note Next Visit Plan continue with NMES prior to EMG biofeedback as it helps with recruitment
--- NOTE | 2022-04-25 10:27 | PT.OTN ---
Current Diagnoses Mixed incontinence (04/25/22) Pelvic muscle wasting (04/25/22) Physical Therapy Treatment Note PT-OP-A Visit Information Start: 02/06/22 09:39 Freq: Status: Active Protocol: Document 04/25/22 09:48 [facility] (Rec: 04/25/22 10:27 [facility] [id number]) Out-Patient Physical Therapy Visit Information Visit Information Visit Type Treatment Note PT-OP-B Current Condition Start: 02/06/22 09:39 Freq: Status: Active Protocol: Document 02/06/22 11:25 [facility] (Rec: 02/06/22 12:02 [facility] [id number]) Current Condition History of Current Condition Onset Date chronic but worsening over time Current Complaints urinary stress incontinence, urinary urgency History of Current Condition pt reports if she sneezes she will leak, and in her pilates class she will leak, she has been experience these symptoms since she wasd 40 years old. She will get the urge to void if she is walking into a bathroom and has to go bad. She wears nicks unders but uses pads for pilates class 2012 she had a small perferation in her colon and was in the hospital x 4 days. She is set up for a CT scan looking at her ovary. SHe had her left ovary taken out when she had her appendix taken out in 1994. A cyst was seen on her right side. She has been eating 2 figs per day and this gives her a daily bowel movement x 2 months. Before this she was constipated daily . 1 vaginal delivery. Treatment Goals Patient/Caregiver Goals pt goals are to eliminate leakage and to improve pelvic floor strength PT-OP-C Subjective Start: 02/06/22 09:39 Freq: Status: Active Protocol: Document 04/25/22 09:48 [facility] (Rec: 04/25/22 10:27 [facility] [id number]) OP-PT Subjective Patient Comments Patient Comments pt notes overall symptoms are better she had a good walk out the [place], she is trying to drink water PT-OP-F Manual Assessment Start: 02/06/22 09:39 Freq: Status: Active Protocol: Document 02/06/22 11:15 [facility] (Rec: 02/12/22 16:36 [facility] [id number]) Manual Assessments Soft Tissue Assessment Soft Tissue Mobility Assessment restrictions in the upper abdominal fascia and diaphragm , oblique abdominal tightness and fascial restrictions PT-OP-I Pelvic Floor Start: 02/06/22 09:39 Freq: Status: Active Protocol: Document 04/10/22 12:41 [facility] (Rec: 04/10/22 12:47 [facility] [id number]) Pelvic Floor Assessment Urine Pelvic Floor Surgery No Urinary Symptoms Urge Sensation Other Urinary Symptoms urinary stress incontinence Leakage Size Medium Leakage Cause Cough,Exercise Other Leakage Causes pt reports she will leak through her underware and is wearing washable pads Pelvic Clock Pelvic Clock 12-3 Atrophy Pelvic Clock 3-6 Atrophy,Tightness Pelvic Clock 6-9 Atrophy,Tightness Pelvic Clock 9-12 Atrophy Pelvic Clock Other tightness and guarding in the pelvic clock from 3-6 and 6-9 SEMG (uV) Baseline 0.5 Contraction Ability Voluntary Contraction Weak Voluntary Relaxation Weak Manual Muscle Testing Left 3 Manual Muscle Testing Right 3 Manual Muscle Testing Anterior 3 Manual Muscle Testing Posterior 3 Muscle Endurance (Seconds) 6 Comments Pelvic Floor Comments clint tends to use her upper abdominal wall to substitute for pelvic floor contractions, she is guarded in the pelvic floor from 3-6 and 6-9 in the pelvic clock. She is able to facilitate all aspects of her pelvic floor but has difficulty relaxing PT-OP-J Posture/Palpation/Skin Start: 02/06/22 09:39 Freq: Status: Active Protocol: Document 02/06/22 11:15 [facility] (Rec: 02/12/22 16:35 [facility] [id number]) Palpation Assessment Location oblique attachment to the rib cage Palpation Findings Soft Tissue Tightness Palpation Details pt tends to engage her obliques when attempting to engage her pelvic floor and is tight in the attachments to the rib cage levator ani Palpation Location levator ani Palpation Findings Soft Tissue Tightness,Muscle Guarding PT-OP-Q Treatments Start: 02/06/22 09:39 Freq: Status: Active Protocol: Document 04/25/22 09:48 [facility] (Rec: 04/25/22 10:27 [facility] [id number]) Therapeutic Exercises Supine Exercises templates for coorditaion and eccentric control Supine Exercise Name working on eccentric lowering and coordination with EMG BIOFEEDBACK Reps/Minutes x 5 minutes pelvic floor quick contractions Reps/Minutes x 10 reps pelvic floor long holds Reps/Minutes max of 13.7 6.9 uv average Standing Exercises standing pelvic floor contractions Reps/Minutes x 15 Comments worked on isolations without upper abdominal substitution Neuro Re-Education Treatment Other Activities NMES with vaginal sensor Details NMES with vaginal sensor Reps/Duration 10 min Comments pt started at level 8 and increased to level 15, sensation is very central PT-OP-T Assessment and Plan Start: 02/06/22 09:39 Freq: Status: Active Protocol: Document 04/25/22 09:48 [facility] (Rec: 04/25/22 10:27 [facility] [id number]) Physical Therapy Assessment Assessment Summary Assessment Clint was able to initiate pelvic floor contractions in standing today. Worked on contractions without upper abdominal muscle substitution Physical Therapy Plan Frequency and Duration Frequency of Treatment 1x/Week Duration of treatment (weeks) 6 Plan of Care Start Date 04/18/22 Plan of Care End Date 06/05/22 Next Visit Focus/Plan Next Note Type Treatment Note Next Visit Plan THis will be pts last visit, increase duration for standing , NMES to start off treatment
--- NOTE | 2022-05-02 10:24 | PT.OTN ---
Current Diagnoses Mixed incontinence (05/02/22) Pelvic muscle wasting (05/02/22) Physical Therapy Treatment Note PT-OP-A Visit Information Start: 02/06/22 09:39 Freq: Status: Active Protocol: Document 05/02/22 09:46 [facility] (Rec: 05/02/22 10:24 [facility] [id number]) Out-Patient Physical Therapy Visit Information Visit Information Visit Type Treatment Note Visit Start Time 09:45 Visit Stop Time 10:39 Total Visit Minutes 45 PT-OP-B Current Condition Start: 02/06/22 09:39 Freq: Status: Active Protocol: Document 02/06/22 11:25 [facility] (Rec: 02/06/22 12:02 [facility] [id number]) Current Condition History of Current Condition Onset Date chronic but worsening over time Current Complaints urinary stress incontinence, urinary urgency History of Current Condition pt reports if she sneezes she will leak, and in her pilates class she will leak, she has been experience these symptoms since she wasd 40 years old. She will get the urge to void if she is walking into a bathroom and has to go bad. She wears nicks unders but uses pads for pilates class 2012 she had a small perferation in her colon and was in the hospital x 4 days. She is set up for a CT scan looking at her ovary. SHe had her left ovary taken out when she had her appendix taken out in 1994. A cyst was seen on her right side. She has been eating 2 figs per day and this gives her a daily bowel movement x 2 months. Before this she was constipated daily . 1 vaginal delivery. Treatment Goals Patient/Caregiver Goals pt goals are to eliminate leakage and to improve pelvic floor strength PT-OP-C Subjective Start: 02/06/22 09:39 Freq: Status: Active Protocol: Document 05/02/22 09:46 [facility] (Rec: 05/02/22 10:24 [facility] [id number]) OP-PT Subjective Patient Comments Patient Comments twice this week she has had to void and she did the urge technique and she was able to phyllis the need to void. PT-OP-F Manual Assessment Start: 02/06/22 09:39 Freq: Status: Active Protocol: Document 02/06/22 11:15 [facility] (Rec: 02/12/22 16:36 [facility] [id number]) Manual Assessments Soft Tissue Assessment Soft Tissue Mobility Assessment restrictions in the upper abdominal fascia and diaphragm , oblique abdominal tightness and fascial restrictions PT-OP-I Pelvic Floor Start: 02/06/22 09:39 Freq: Status: Active Protocol: Document 04/10/22 12:41 [facility] (Rec: 04/10/22 12:47 [facility] [id number]) Pelvic Floor Assessment Urine Pelvic Floor Surgery No Urinary Symptoms Urge Sensation Other Urinary Symptoms urinary stress incontinence Leakage Size Medium Leakage Cause Cough,Exercise Other Leakage Causes pt reports she will leak through her underware and is wearing washable pads Pelvic Clock Pelvic Clock 12-3 Atrophy Pelvic Clock 3-6 Atrophy,Tightness Pelvic Clock 6-9 Atrophy,Tightness Pelvic Clock 9-12 Atrophy Pelvic Clock Other tightness and guarding in the pelvic clock from 3-6 and 6-9 SEMG (uV) Baseline 0.5 Contraction Ability Voluntary Contraction Weak Voluntary Relaxation Weak Manual Muscle Testing Left 3 Manual Muscle Testing Right 3 Manual Muscle Testing Anterior 3 Manual Muscle Testing Posterior 3 Muscle Endurance (Seconds) 6 Comments Pelvic Floor Comments clint tends to use her upper abdominal wall to substitute for pelvic floor contractions, she is guarded in the pelvic floor from 3-6 and 6-9 in the pelvic clock. She is able to facilitate all aspects of her pelvic floor but has difficulty relaxing PT-OP-J Posture/Palpation/Skin Start: 02/06/22 09:39 Freq: Status: Active Protocol: Document 02/06/22 11:15 [facility] (Rec: 02/12/22 16:35 [facility] [id number]) Palpation Assessment Location oblique attachment to the rib cage Palpation Findings Soft Tissue Tightness Palpation Details pt tends to engage her obliques when attempting to engage her pelvic floor and is tight in the attachments to the rib cage levator ani Palpation Location levator ani Palpation Findings Soft Tissue Tightness,Muscle Guarding PT-OP-Q Treatments Start: 02/06/22 09:39 Freq: Status: Active Protocol: Document 05/02/22 09:46 [facility] (Rec: 05/02/22 10:24 [facility] [id number]) Therapeutic Exercises Supine Exercises templates for coorditaion and eccentric control Supine Exercise Name working on eccentric lowering and coordination with EMG BIOFEEDBACK Reps/Minutes x 5 minutes pelvic floor quick contractions Reps/Minutes x 10 reps pelvic floor long holds Reps/Minutes 13 average and max of 56 Neuro Re-Education Treatment Other Activities NMES with vaginal sensor Details NMES Reps/Duration 10 Comments pt could feel very strong sensation at level 10 able to go as high as 30 intensity PT-OP-T Assessment and Plan Start: 02/06/22 09:39 Freq: Status: Active Protocol: Document 05/02/22 09:46 [facility] (Rec: 05/02/22 10:24 [facility] [id number]) Physical Therapy Assessment Goals 4 Impairment upper abdominal substitution when attempting to contract the pelvic floor, tightness of the oblique abdominal muscles Laundry Laborer Goal (LTG) Clint is able to perform diaphragmatic breathing with proper rib cage excursion and is able to islolate her pelvic floor muscles without upper abdominal substitution LTG Duration 12 weeks 3 Impairment Decreased endurance of the pelvic floor muscles, decreased ability to sustain a pelvic floor contraction Short Term Goal (STG) Clint is able to contract her pelvic floor and sustain a contraction x 10 seconds in supine STG Duration x 6 weeks Laundry Laborer Goal (LTG) Clint is able to sustain a pelvic floor contraction x 10 seconds in standing LTG Duration x 12 weeks 2 Impairment urinary stress incontinence symptoms Long-Term Goal (LTG) Clint reports a overall reducation in urinary stress incontinence and is able to go through a whole pilates class without leakage Leakage is more intermittent now and there are days that she is not leaking at all LTG Duration 12 weeks 1 Impairment limited water intake during the day and diet includes bladder irritants Short Term Goal (STG) Clint is educated on the importance of drinking water to flush out her bladder as well as limiting bladder irritants to help with urgency Clint is now drinking much more water STG Duration 3 weeks Assessment Summary Assessment Shantanu has made great overall progress and she is feeling like everything is clicking now for pelvic floor engagment. She feels ready to discharge to a [facility] Physical Therapy Plan Discharge Physical Therapy Discharge Comments Clint has made great progress towards her goals and will be discharged at this time
== END 2022-05-02 12:49 | disposition home or self-care (01) ==
LOC: PHYS 09:45
PROVIDERS: Family Provider Internal Medicine; PCP Internal Medicine; Referring Provider Internal Medicine; Visit Provider Internal Medicine
DX: N39.46 Mixed incontinence (principal); N81.84 Pelvic muscle wasting
CPT/HCPCS: 97110; 97112; 97161; 97535

== ENCOUNTER → 2022-05-13 08:34 | Outpatient (ROUT) | payer OTHER, SELFPAY ==
[2022-05-13 08:49] LABS: INR 1.4 (0.9-1.3); Prothrombin Time 15.9 SECONDS (10.1-12.7)
== END ==
PROVIDERS: Family Provider Internal Medicine; PCP Internal Medicine; Visit Provider Internal Medicine
DX: Z79.01 Long term (current) use of anticoagulants (principal)
CPT/HCPCS: 85610

== ENCOUNTER → 2022-05-27 08:36 | Outpatient (ROUT) | payer OTHER, SELFPAY ==
[2022-05-27 08:43] LABS: Prothrombin Time 35.2 SECONDS (10.1-12.7)
== END ==
PROVIDERS: Family Provider Internal Medicine; PCP Internal Medicine; Visit Provider Internal Medicine
DX: Z79.01 Long term (current) use of anticoagulants (principal)
CPT/HCPCS: 85610

== ENCOUNTER → 2022-06-10 08:17 | Outpatient (ROUT) | payer OTHER, SELFPAY ==
[2022-06-10 08:25] LABS: Prothrombin Time 54.9 SECONDS (10.1-12.7)
[2022-06-10 08:30] LABS: INR 4.7 (0.9-1.3)
== END ==
PROVIDERS: Family Provider Internal Medicine; PCP Internal Medicine; Visit Provider Internal Medicine
DX: Z79.01 Long term (current) use of anticoagulants (principal)
CPT/HCPCS: 85610

== ENCOUNTER → 2022-06-13 09:58 | Outpatient (CLI) | payer OTHER, SELFPAY ==
--- NOTE | 2022-06-13 | DI.RAD.S_ITS ---
PROCEDURE: XR THORACIC SPINE 3V INDICATIONS: BACK PAIN TECHNIQUE: 3 views of the thoracic spine were acquired. COMPARISON: [facility], CR, XR THORACIC SPINE 3V, 06/12/2020, 12:42. FINDINGS: Bones: No fractures or dislocations. No suspicious bony lesions. Mild compression fracture of T10 new since the last exam. Mild degenerative disc disease throughout the thoracic spine. 12 pairs of ribs are noted, and appear intact where visualized. Soft tissues: No paravertebral stripe thickening. Mild cardiomegaly. IMPRESSION: 1. Mild compression fracture of T10 of indeterminate chronicity. Dictated by: Tatyana Alcaraz M.D. on 06/13/2022 at 10:48 Approved by: Tatyana Alcaraz M.D. on 06/13/2022 at 10:51
--- NOTE | 2022-06-13 | DI.RAD.S_ITS ---
PROCEDURE: XR PELVIS 1-2V INDICATIONS: BACK PAIN TECHNIQUE: 1 view of the pelvis acquired. COMPARISON: None. FINDINGS: Bones: No fractures or dislocations. No suspicious bony lesions. Mild hip and sacroiliac joint degeneration bilaterally. Soft tissues: Visualized bowel gas pattern is normal. No suspicious soft tissue calcifications. There is a large amount of stool in colon. IMPRESSION: No acute osseous abnormalities. Mild degenerative joint disease. Dictated by: Tatyana Alcaraz M.D. on 06/13/2022 at 12:07 Approved by: Tatyana Alcaraz M.D. on 06/13/2022 at 12:08
--- NOTE | 2022-06-13 | DI.RAD.S_ITS ---
PROCEDURE: XR LUMBAR SPINE 2-3V INDICATIONS: BACK PAIN TECHNIQUE: 3 views of the lumbar spine were acquired. COMPARISON: [facility], CR, XR LUMBAR SPINE 2-3V, 06/12/2020, 12:42. FINDINGS: Bones: 5 [id number] vertebrae are present. There is grade 2 anterolisthesis of L5 on S1 secondary to bilateral L5 pars defects. There are mild compression fractures at L1 and L2, new since the last exam. No suspicious bony lesions. There is degenerative disc disease, moderate at L5-S1, and [id number] at other levels. Moderate facet arthropathy at L4-L5 and L5-S1. Soft tissues: Overlying bowel gas pattern is normal. No suspicious soft tissue calcifications. IMPRESSION: 1. New compression mild fractures of L1 and L2 since the last exam. The chronicity of the fractures are indeterminate. Consider MRI for further evaluation if clinically indicated. The patient may benefit from vertebroplasty. 2. Grade 1 anterolisthesis of L5 on S1 secondary to bilateral L5 pars defect. 3. Degenerative disc and facet disease in lumbar spine. Dictated by: Tatyana Alcaraz M.D. on 06/13/2022 at 10:45 Approved by: Tatyana Alcaraz M.D. on 06/13/2022 at 10:48
== END ==
PROVIDERS: Family Provider Internal Medicine; PCP Internal Medicine; Referring Provider Registered Nurse; Visit Provider Registered Nurse
DX: M48.56XA Collapsed vertebra, not elsewhere classified, lumbar region, initial encounter for fracture (principal); M48.54XA Collapsed vertebra, not elsewhere classified, thoracic region, initial encounter for fracture; M43.17 Spondylolisthesis, lumbosacral region; M51.37 Other intervertebral disc degeneration, lumbosacral region; M51.36 Other intervertebral disc degeneration, lumbar region; M51.34 Other intervertebral disc degeneration, thoracic region; M48.061 Spinal stenosis, lumbar region without neurogenic claudication; M48.07 Spinal stenosis, lumbosacral region; M16.0 Bilateral primary osteoarthritis of hip; M46.1 Sacroiliitis, not elsewhere classified; M54.9 Dorsalgia, unspecified
CPT/HCPCS: 72072; 72100; 72170

== ENCOUNTER → 2022-06-17 08:07 | Outpatient (ROUT) | payer OTHER, SELFPAY ==
[2022-06-17 08:40] LABS: INR 3.3 (0.9-1.3); Prothrombin Time 38.4 SECONDS (10.1-12.7)
== END ==
PROVIDERS: Family Provider Internal Medicine; PCP Internal Medicine; Visit Provider Internal Medicine
DX: Z79.01 Long term (current) use of anticoagulants (principal)
CPT/HCPCS: 85610

== ENCOUNTER → 2022-06-24 08:09 | Outpatient (ROUT) | payer OTHER, SELFPAY ==
[2022-06-24 08:22] LABS: INR 2.8 (0.9-1.3)
== END ==
PROVIDERS: Family Provider Internal Medicine; PCP Internal Medicine; Visit Provider Internal Medicine
DX: Z79.01 Long term (current) use of anticoagulants (principal)
CPT/HCPCS: 85610

== ENCOUNTER → 2022-07-05 10:49 | Outpatient (CLI) | payer OTHER, SELFPAY ==
--- NOTE | 2022-07-05 10:51 | DI.MRI.S_ITS ---
PROCEDURE: MR THORACIC SPINE WO CON INDICATIONS: Spondylolisthesis, lumbar region TECHNIQUE: Noncontrast sagittal T1 spine echo and T2 fast spin echo, sagittal STIR, and T2 fast spin echo through the thoracic spine. COMPARISON: [facility], , MR LUMBAR SPINE WO CON, 07/05/2022, 11:01. FINDINGS: Image quality: Excellent. Alignment and Curvature: There is normal bony alignment. Bone Marrow: Acute moderate L1 compression fracture. No acute thoracic compression fractures. Chronic mild to moderate T10 compression fracture. Spinal Cord: Visualized spinal cord is normal in size and signal. Paraspinous Soft Tissues: No paravertebral masses. Miscellaneous: On axial images, central canal and foramina appear widely patent at all scanned levels. IMPRESSION: 1. Acute moderate L1 compression fracture, [id number] chronic T10 compression fracture. 2. No acute thoracic compression fractures. 3. No thoracic canal stenosis or foraminal stenosis. Comment: Findings suggest severe osteoporosis. Consider DEXA bone densitometry on a nonemergent basis. Dictated by: Patricio Henderson M.D. on 07/05/2022 at 12:49 Approved by: Patricio Henderson M.D. on 07/05/2022 at 13:08
--- NOTE | 2022-07-05 10:51 | DI.MRI.S_ITS ---
PROCEDURE: MR LUMBAR SPINE WO CON INDICATIONS: Spondylolisthesis, lumbar region TECHNIQUE: Noncontrast sagittal T1 spin echo and T2 fast echo, sagittal STIR, and T2 fast spin echo through the lumbar spine. In cases with scoliosis, additional coronal T2 fast spin echo may be performed. COMPARISON: [facility], CR, XR LUMBAR SPINE 2-3V, 06/13/2022, 10:01. FINDINGS: Image quality: Excellent. Alignment and Curvature: Bilateral L5 pars defects with anterolisthesis of L5 on S1 measuring 15 mm. Bone Marrow: Acute moderate L1 compression fracture with approximately 50% vertebral body height loss. Minimal posterior bony retropulsion measuring approximately 4 mm without canal stenosis. Mild chronic L2 compression. Spinal Cord: Conus medullaris terminates at the L1 level. Visualized cord demonstrates normal signal and size. Paraspinous Soft Tissues: No paravertebral masses. T12-L1: No canal stenosis or foraminal stenosis. L1-L2: No canal stenosis or foraminal stenosis. L2-L3: Disc bulge. Facet hypertrophy. No canal stenosis or foraminal stenosis. L3-L4: Disc bulge. Facet hypertrophy. Borderline canal stenosis. No significant foraminal stenosis. L4-L5: Disc bulge. Facet hypertrophy. Borderline canal stenosis. No significant foraminal stenosis. L5-S1: Bilateral L5 pars defects. 15 mm of anterolisthesis of L5 on S1. Posterior disc bulge and facet hypertrophy. At least moderate canal stenosis. Severe bilateral foraminal narrowing with bilateral foraminal L5 nerve root impingement. IMPRESSION: 1. Acute moderate L1 compression fracture without canal stenosis. 2. Bilateral L5 pars defects with 15 mm of anterolisthesis of L5 on S1. There is at least moderate canal stenosis. There is bilateral severe foraminal narrowing with bilateral foraminal L5 nerve root impingement. Dictated by: Patricio Henderson M.D. on 07/05/2022 at 12:40 Approved by: Patricio Henderson M.D. on 07/05/2022 at 12:48
== END ==
PROVIDERS: Family Provider Internal Medicine; PCP Internal Medicine; Referring Provider Physician Assistant; Visit Provider Physician Assistant
DX: M48.56XA Collapsed vertebra, not elsewhere classified, lumbar region, initial encounter for fracture (principal); M48.54XA Collapsed vertebra, not elsewhere classified, thoracic region, initial encounter for fracture; M43.16 Spondylolisthesis, lumbar region; M43.17 Spondylolisthesis, lumbosacral region; M48.07 Spinal stenosis, lumbosacral region
CPT/HCPCS: 72146; 72148

== ENCOUNTER → 2022-07-15 13:44 | Outpatient (ROUT) | payer OTHER, SELFPAY ==
[2022-07-15 13:58] LABS: INR 3.3 (0.9-1.3); Prothrombin Time 38.2 SECONDS (10.1-12.7)
== END ==
PROVIDERS: Family Provider Internal Medicine; PCP Internal Medicine; Visit Provider Internal Medicine
DX: Z79.01 Long term (current) use of anticoagulants (principal)
CPT/HCPCS: 85610

== ENCOUNTER → 2022-07-29 08:56 | Outpatient (ROUT) | payer OTHER, SELFPAY ==
[2022-07-29 09:04] LABS: Prothrombin Time 34.3 SECONDS (10.1-12.7)
== END ==
PROVIDERS: Family Provider Internal Medicine; PCP Internal Medicine; Visit Provider Internal Medicine
DX: Z79.01 Long term (current) use of anticoagulants (principal)
CPT/HCPCS: 85610

== ENCOUNTER → 2022-08-12 08:43 | Outpatient (ROUT) | payer OTHER, SELFPAY ==
[2022-08-12 09:03] LABS: INR 2.4 (0.9-1.3); Prothrombin Time 28.1 SECONDS (10.1-12.7)
== END ==
PROVIDERS: Family Provider Internal Medicine; PCP Internal Medicine; Visit Provider Internal Medicine
DX: Z79.01 Long term (current) use of anticoagulants (principal)
CPT/HCPCS: 85610

== ENCOUNTER → 2022-09-09 08:51 | Outpatient (ROUT) | payer OTHER, SELFPAY ==
[2022-09-09 09:04] LABS: INR 2.8 (0.9-1.3); Prothrombin Time 32.9 SECONDS (10.1-12.7)
== END ==
PROVIDERS: Family Provider Internal Medicine; PCP Internal Medicine; Visit Provider Internal Medicine
DX: Z79.01 Long term (current) use of anticoagulants (principal)
CPT/HCPCS: 85610

== ENCOUNTER → 2022-10-07 10:29 | Outpatient (ROUT) | payer OTHER, SELFPAY ==
[2022-10-07 10:49] LABS: INR 3.1 (0.9-1.3); Prothrombin Time 36.3 SECONDS (10.1-12.7)
== END ==
PROVIDERS: Family Provider Internal Medicine; PCP Internal Medicine; Visit Provider Internal Medicine
DX: Z79.01 Long term (current) use of anticoagulants (principal); I48.91 Unspecified atrial fibrillation
CPT/HCPCS: 85610

== ENCOUNTER → 2022-10-21 08:29 | Outpatient (ROUT) | payer OTHER, SELFPAY ==
[2022-10-21 08:38] LABS: INR 2.3 (0.9-1.3); Prothrombin Time 27.1 SECONDS (10.1-12.7)
== END ==
PROVIDERS: Visit Provider Internal Medicine
DX: I48.91 Unspecified atrial fibrillation (principal)
CPT/HCPCS: 85610

== ENCOUNTER → 2022-11-18 11:15 | Outpatient (ROUT) | payer OTHER, SELFPAY ==
[2022-11-18 11:21] LABS: INR 1.9 (0.9-1.3); Prothrombin Time 22.2 SECONDS (10.1-12.7)
== END ==
PROVIDERS: Family Provider Internal Medicine; PCP Internal Medicine; Visit Provider Internal Medicine
DX: Z79.01 Long term (current) use of anticoagulants (principal)
CPT/HCPCS: 85610

== ENCOUNTER → 2022-11-26 07:59 | Outpatient (ROUT) | payer OTHER, SELFPAY ==
[2022-11-26 08:35] LABS: INR 2.3 (0.9-1.3); Prothrombin Time 26.4 SECONDS (10.1-12.7)
== END ==
PROVIDERS: Family Provider Internal Medicine; PCP Internal Medicine; Visit Provider Internal Medicine
DX: I48.91 Unspecified atrial fibrillation (principal)
CPT/HCPCS: 85610

== ENCOUNTER → 2022-12-10 07:42 | Outpatient (ROUT) | payer OTHER, SELFPAY ==
[2022-12-10 07:51] LABS: Prothrombin Time 35.1 SECONDS (10.1-12.7)
== END ==
PROVIDERS: Family Provider Internal Medicine; PCP Internal Medicine; Visit Provider Internal Medicine
DX: Z79.01 Long term (current) use of anticoagulants (principal); I48.91 Unspecified atrial fibrillation
CPT/HCPCS: 85610

== ENCOUNTER → 2022-12-16 09:18 | Outpatient (ROUT) | payer OTHER, SELFPAY ==
[2022-12-16 09:37] LABS: Prothrombin Time 34.6 SECONDS (10.1-12.7)
== END ==
PROVIDERS: Family Provider Internal Medicine; PCP Internal Medicine; Visit Provider Internal Medicine
DX: I48.91 Unspecified atrial fibrillation (principal)
CPT/HCPCS: 85610

== ENCOUNTER → 2022-12-30 08:49 | Outpatient (ROUT) | payer OTHER, SELFPAY ==
[2022-12-30 09:06] LABS: INR 2.9 (0.9-1.3); Prothrombin Time 34.1 SECONDS (10.1-12.7)
== END ==
PROVIDERS: Family Provider Internal Medicine; PCP Internal Medicine; Visit Provider Internal Medicine
DX: I48.91 Unspecified atrial fibrillation (principal)
CPT/HCPCS: 85610

== ENCOUNTER → 2023-01-16 11:40 | Outpatient (CLI) | payer OTHER, SELFPAY ==
--- NOTE | 2023-01-16 | DI.RAD.S_ITS ---
Bone Density Report Name: EVELIA YUSUF Age: 77 Sex: Female Ethnicity: White Date of : 1945 Indication: postmenopausal osteoporosis; Referring Provider: KIN BURR Study: Bone densitometry was performed. Exam Date: January 16, 2023 Accession number: [id number] Bone Density: Region BMD T-score Z-score Classification AP Spine(L3, L4) 0.804 -2.7 0.0 Osteoporosis Femoral Neck (Left) 0.556 -2.6 -0.4 Osteoporosis Total Hip (Left) 0.630 -2.6 -0.6 Osteoporosis Femoral Neck (Right) 0.601 -2.2 0.0 Osteopenia Total Hip (Right) 0.724 -1.8 0.1 Osteopenia Total Hip Mean 0.677 -2.2 -0.3 Osteopenia World Health Organization criteria for BMD impression classify patients as: Normal (T-score at or above -1.0), Osteopenia (T-score between -1.0 and -2.5), or Osteoporosis (T-score at or below -2.5). 10-year Fracture Risk: FRAX not reported because: Some T-score for Spine Total or Hip Total or Femoral Neck at or below -2.5 Previous Exams: -- Region Exam Age BMD T-score BMD Change BMD Change Date g/cm2 vs Baseline vs Previous -- AP Spine (L3-L4) 01/16/2023 77 0.804 -2.7 -0.068 (-7.8%)# 0.050 (6.7%)# 12/26/2020 75 0.753 -3.2 -0.118 (-13.6%)* -0.039 (-4.9%)* 11/24/2018 73 0.792 -2.8 -0.079 (-9.1%)* 0.034 (4.5%)* 09/15/2017 72 0.758 -3.1 -0.114 (-13.0%)* -0.021 (-2.7%) 09/05/2015 70 0.779 -2.9 -0.093 (-10.6%)* -0.011 (-1.4%) 08/19/2014 69 0.790 -2.8 -0.081 (-9.3%)* -0.074 (-8.6%)* 12/31/2010 65 0.864 -2.2 -0.007 (-0.8%) -0.007 (-0.8%) 01/29/2007 61 0.872 -2.1 Total Hip(Left) 01/16/2023 77 0.630 -2.6 -0.052 (-7.6%)# 0.018 (2.9%)# 12/26/2020 75 0.612 -2.7 -0.070 (-10.3%)* -0.029 (-4.5%)* 11/24/2018 73 0.641 -2.5 -0.041 (-6.0%)* -0.009 (-1.4%) 09/15/2017 72 0.650 -2.4 -0.032 (-4.7%)* 0.011 (1.7%) 09/05/2015 70 0.639 -2.5 -0.043 (-6.3%)* -0.013 (-2.1%) 08/19/2014 69 0.652 -2.4 -0.030 (-4.4%)* -0.034 (-4.9%)* 12/31/2010 65 0.686 -2.1 0.004 (0.6%) 0.004 (0.6%) 01/29/2007 61 0.682 -2.1 Total Hip(Right) 01/16/2023 77 0.724 -1.8 0.017 (2.4%)# 0.073 (11.3%)# 12/26/2020 75 0.650 -2.4 -0.056 (-8.0%)* 0.005 (0.7%) 11/24/2018 73 0.646 -2.4 -0.061 (-8.6%)* -0.027 (-4.0%) 09/15/2017 72 0.672 -2.2 -0.034 (-4.9%)* 0.017 (2.5%) 09/05/2015 70 0.656 -2.3 -0.051 (-7.2%)* -0.023 (-3.4%) 08/19/2014 69 0.678 -2.2 -0.028 (-4.0%)* -0.014 (-2.0%) 12/31/2010 65 0.692 -2.0 -0.014 (-2.0%) -0.014 (-2.0%) 01/29/2007 61 0.707 -1.9 -- *Denotes significance at 95% confidence level, LSC for AP Spine = 0.022 g/cm2, LSC for Total Hip = 0.027 g/cm2 Rate of change results reflect vertebral levels common to all scans # Denotes dissimilar scan types or analysis methods Impression: The patient has osteoporosis, based on the Total Spine T-score. No significant bone loss was observed. Discussion: INCREASED RISK OF FRACTURE. BONE DENSITY IS UNDESIRABLY LOW AT ONE OR MORE SKELETAL SITES, CONSISTENT WITH POSTMENOPAUSAL OSTEOPOROSIS. This patient's lowest T-score meets the World Health Organization's (WHO) criteria for osteoporosis at one or more sites (T-score -2.5 or below). In untreated patients, the risk of osteoporotic fracture increases approximately two-fold for each 1.0 SD decrease in T-score. Low bone density is not the only risk factor for fracture; also consider factors such as patient's age, frailty or poor health, risk of falling, risk of injury, previous osteoporotic fracture, family history of osteoporosis, cigarette smoking, low body weight, etc. Not everyone with low bone mineral density has osteoporosis; osteomalacia and other metabolic bone disorders should also be considered. Patients who have osteoporosis should be evaluated for specific diseases and conditions (secondary causes) that may cause or contribute to bone loss. The [place] [employer]ocrinologists (AACE) and National Osteoporosis Foundation (NOF) recommend pharmacologic intervention for all postmenopausal women whose T-score is in this range. The patient should follow a healthful lifestyle (good nutrition with adequate calcium and vitamin D, and appropriate weight-bearing exercise). Follow-Up: Consider a repeat BMD and Vertebral Fracture Assessment (VFA) exam in 2 years or sooner if medically necessary, to reassess this patient's status. Reported by: JAMES HUGHES M.D. on 01/16/2023 11:58:00 AM.
== END ==
PROVIDERS: Family Provider Internal Medicine; PCP Internal Medicine; Referring Provider Internal Medicine; Visit Provider Internal Medicine
DX: Z78.0 Asymptomatic menopausal state (principal); M85.89 Other specified disorders of bone density and structure, multiple sites; M81.0 Age-related osteoporosis without current pathological fracture
CPT/HCPCS: 77080

== ENCOUNTER → 2023-01-27 09:15 | Outpatient (ROUT) | payer OTHER, SELFPAY ==
[2023-01-27 09:21] LABS: INR 2.6 (0.9-1.3)
== END ==
PROVIDERS: Family Provider Internal Medicine; PCP Internal Medicine; Visit Provider Internal Medicine
DX: I48.91 Unspecified atrial fibrillation (principal)
CPT/HCPCS: 85610

== ENCOUNTER → 2023-02-24 09:29 | Outpatient (ROUT) | payer OTHER, SELFPAY ==
[2023-02-24 10:26] LABS: INR 2.1 (0.9-1.3)
[2023-02-24 10:42] LABS: Prothrombin Time 23.8 SECONDS (10.1-12.7)
== END ==
PROVIDERS: Family Provider Internal Medicine; PCP Internal Medicine; Visit Provider Internal Medicine
DX: I48.91 Unspecified atrial fibrillation (principal)
CPT/HCPCS: 85610

== ENCOUNTER → 2023-04-04 08:44 | Outpatient (ROUT) | payer OTHER, SELFPAY ==
[2023-04-04 08:57] LABS: INR 1.9 (0.9-1.3); Prothrombin Time 21.8 SECONDS (9.4-12.5)
== END ==
PROVIDERS: Family Provider Internal Medicine; PCP Internal Medicine; Visit Provider Registered Nurse
DX: I48.91 Unspecified atrial fibrillation (principal)
CPT/HCPCS: 85610

== ENCOUNTER → 2023-04-28 09:11 | Outpatient (ROUT) | payer OTHER, SELFPAY ==
[2023-04-28 09:25] LABS: INR 2.3 (0.9-1.3); Prothrombin Time 26.7 SECONDS (9.4-12.5)
== END ==
PROVIDERS: Family Provider Internal Medicine; PCP Internal Medicine; Visit Provider Registered Nurse
DX: I48.91 Unspecified atrial fibrillation (principal)
CPT/HCPCS: 85610

== ENCOUNTER → 2023-06-02 08:53 | Outpatient (ROUT) | payer OTHER, SELFPAY ==
[2023-06-02 09:27] LABS: INR 1.7 (0.9-1.3); Prothrombin Time 19.8 SECONDS (9.4-12.5)
== END ==
PROVIDERS: Family Provider Internal Medicine; PCP Internal Medicine; Visit Provider Registered Nurse
DX: I48.91 Unspecified atrial fibrillation (principal)
CPT/HCPCS: 85610

== ENCOUNTER → 2023-06-10 10:48 | Outpatient (ROUT) | payer OTHER, SELFPAY ==
[2023-06-10 11:03] LABS: INR 2.4 (0.9-1.3); Prothrombin Time 27.9 SECONDS (9.4-12.5)
== END ==
PROVIDERS: Family Provider Internal Medicine; PCP Internal Medicine; Visit Provider Registered Nurse
DX: I48.91 Unspecified atrial fibrillation (principal)
CPT/HCPCS: 85610

== ENCOUNTER → 2023-08-26 09:20 | Outpatient (ROUT) | payer OTHER, SELFPAY ==
[2023-08-26 09:28] LABS: INR 2.4 (0.9-1.3); Prothrombin Time 28.2 SECONDS (9.4-12.5)
== END ==
PROVIDERS: Family Provider Internal Medicine; PCP Internal Medicine; Visit Provider Registered Nurse
DX: I48.91 Unspecified atrial fibrillation (principal)
CPT/HCPCS: 85610

== ENCOUNTER → 2023-08-26 15:49 | Outpatient (CLI) | payer OTHER, SELFPAY ==
--- NOTE | 2023-08-26 15:52 | DI.RAD.S_ITS ---
PROCEDURE: XR KNEE LT 3V INDICATIONS: LT KNEE PAIN TECHNIQUE: 3 views of the knee were acquired. COMPARISON: None. FINDINGS: Bones: No fractures or dislocations. Minimal joint space loss at the medial compartment. Tricompartmental osteophytosis. No suspicious bony lesions. Soft tissues: No significant joint effusion. No suspicious soft tissue calcifications. IMPRESSION: Moderate left knee DJD. Dictated by: Cornell Ceja M.D. on 08/27/2023 at 9:46 Approved by: Cornell Ceja M.D. on 08/27/2023 at 9:49
== END ==
PROVIDERS: Family Provider Internal Medicine; PCP Internal Medicine; Referring Provider Internal Medicine; Visit Provider Internal Medicine
DX: M17.12 Unilateral primary osteoarthritis, left knee (principal); M25.562 Pain in left knee; I48.91 Unspecified atrial fibrillation
CPT/HCPCS: 73562; 85610

== ENCOUNTER → 2023-09-29 09:06 | Outpatient (ROUT) | payer OTHER, SELFPAY ==
[2023-09-29 09:19] LABS: INR 2.4 (0.9-1.3); Prothrombin Time 28.1 SECONDS (9.4-12.5)
== END ==
PROVIDERS: Family Provider Internal Medicine; PCP Internal Medicine; Visit Provider Internal Medicine
DX: I48.19 Other persistent atrial fibrillation (principal)
CPT/HCPCS: 85610

== ENCOUNTER → 2023-11-03 08:29 | Outpatient (ROUT) | payer OTHER, SELFPAY ==
[2023-11-03 08:45] LABS: INR 2.2 (0.9-1.3); Prothrombin Time 25.8 SECONDS (9.4-12.5)
== END ==
PROVIDERS: Family Provider Internal Medicine; PCP Internal Medicine; Visit Provider Internal Medicine
DX: I48.19 Other persistent atrial fibrillation (principal)
CPT/HCPCS: 85610

== ENCOUNTER → 2024-01-05 08:31 | Outpatient (ROUT) | payer OTHER, SELFPAY ==
[2024-01-05 08:40] LABS: Prothrombin Time 34.3 SECONDS (9.4-12.5)
== END ==
PROVIDERS: Family Provider Internal Medicine; PCP Internal Medicine; Visit Provider Internal Medicine
DX: I48.19 Other persistent atrial fibrillation (principal)
CPT/HCPCS: 85610

== ENCOUNTER → 2024-01-19 08:36 | Outpatient (ROUT) | payer OTHER, SELFPAY ==
[2024-01-19 08:47] LABS: INR 2.8 (0.9-1.3); Prothrombin Time 32.6 SECONDS (9.4-12.5)
== END ==
PROVIDERS: Family Provider Internal Medicine; PCP Internal Medicine; Visit Provider Internal Medicine
DX: I48.19 Other persistent atrial fibrillation (principal)
CPT/HCPCS: 85610

== ENCOUNTER → 2024-02-16 09:39 | Outpatient (ROUT) | payer OTHER, SELFPAY ==
[2024-02-16 14:29] LABS: INR 3.3 (0.9-1.3); Prothrombin Time 35.8 SECONDS (9.4-12.5)
== END ==
PROVIDERS: Family Provider Internal Medicine; PCP Internal Medicine; Visit Provider Internal Medicine
DX: I48.19 Other persistent atrial fibrillation (principal)
CPT/HCPCS: 85610

== ENCOUNTER → 2024-03-01 08:28 | Outpatient (ROUT) | payer OTHER, SELFPAY ==
[2024-03-01 08:42] LABS: INR 2.5 (0.9-1.3)
== END ==
PROVIDERS: Family Provider Internal Medicine; PCP Internal Medicine; Visit Provider Internal Medicine
DX: I48.19 Other persistent atrial fibrillation (principal)
CPT/HCPCS: 85610

== ENCOUNTER → 2024-03-29 08:59 | Outpatient (ROUT) | payer OTHER, SELFPAY ==
[2024-03-29 09:16] LABS: INR 2.1 (0.9-1.3); Prothrombin Time 23.6 SECONDS (9.4-12.5)
== END ==
PROVIDERS: Family Provider Internal Medicine; PCP Internal Medicine; Visit Provider Internal Medicine
DX: I48.19 Other persistent atrial fibrillation (principal)
CPT/HCPCS: 85610

== ENCOUNTER → 2024-05-31 08:33 | Outpatient (ROUT) | payer OTHER, SELFPAY ==
[2024-05-31 08:42] LABS: INR 1.7 (0.9-1.3); Prothrombin Time 19.2 SECONDS (9.4-12.5)
== END ==
PROVIDERS: Family Provider Internal Medicine; PCP Internal Medicine
DX: I48.19 Other persistent atrial fibrillation (principal)
CPT/HCPCS: 85610

== ENCOUNTER → 2024-08-02 15:29 | Outpatient (ROUT) | payer OTHER, SELFPAY ==
[2024-08-02 15:54] LABS: INR 2.1 (0.9-1.3); Prothrombin Time 23.1 SECONDS (9.4-12.5)
== END ==
PROVIDERS: Family Provider Internal Medicine; PCP Internal Medicine; Visit Provider Family Medicine
DX: I48.19 Other persistent atrial fibrillation (principal)
CPT/HCPCS: 85610

== ENCOUNTER → 2024-09-01 08:47 | Outpatient (ROUT) | payer OTHER, SELFPAY ==
[2024-09-01 08:58] LABS: INR 1.7 (0.9-1.3); Prothrombin Time 19.5 SECONDS (9.4-12.5)
== END ==
PROVIDERS: Family Provider Internal Medicine; PCP Internal Medicine; Visit Provider Family Medicine
DX: I48.19 Other persistent atrial fibrillation (principal)
CPT/HCPCS: 85610

== ENCOUNTER → 2024-10-27 14:58 | Outpatient (ROUT) | payer OTHER, SELFPAY ==
[2024-10-27 15:10] LABS: INR 2.4 (0.9-1.3); Prothrombin Time 26.1 SECONDS (9.4-12.5)
== END ==
PROVIDERS: Family Provider Internal Medicine; PCP Internal Medicine; Visit Provider Family Medicine
DX: I48.19 Other persistent atrial fibrillation (principal)
CPT/HCPCS: 85610

== ENCOUNTER 2024-11-01 13:41 | Day surgery (SDC) | payer OTHER, SELFPAY ==
--- NOTE | 2024-11-01 09:30 | PM.PREOP ---
Pre-operative Note COVID-19 COVID-19 status: Not tested Interval Note History & Physical reviewed/Exam performed by Physician: Yes Changes to H&P: No H&P completed within 30 days and has changed as indicated here:: On questioning preop patient ate hours before arrival. Surgery will be delayed to 8 hours post meal. INR 1.7. Patient wishes to proceed especially in light of holding her anticoagulation for atrial fibrillation.
--- NOTE | 2024-11-01 09:31 | PM.OP.1 ---
Operative Date/Time/Diagnoses Date of procedure: 11/01/24 Time of procedure: 17:00 Pre-op diagnosis: Dermatochalasis Post-op diagnosis: same Procedure & Clinicians Procedure: Date of service: November 01, 2024 Preoperative diagnoses: 1. 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 Atrial fibrillation on warfarin 4. arthritis Postoperative diagnoses: 1. Bilateral upper lid dermatochalasis Procedure: Bilateral upper blepharoplasty Surgeon: Nery Christopher MD Complications: none Specimen: None Blood loss: Less than 3 mL Anesthesia: Local infiltration with monitored standby. Indications: Bilateral upper lids obstructing superior vision. Preoperative external photographs taken and loss of vision to within 2 mm of marginal light reflex. Functional surgery. Higher risk due to the use of warfarin for atrial fibrillation. This was stopped 3 days preoperatively. INR 1.7 pre-operativeley. Procedure: In the preoperative holding area the amount skin and subcutaneous tissue to be removed was marked with indelible ink. The contours were carefully checked for symmetry and planned procedure discussed with the patient.the surgery was delayed as the patient had a full breakfast 5 hours before the scheduled surgery time. She went to the operating home NPO for over 8 hours. The patient was taken to the operating room. IV sedation was given. Proparacaine drops were placed in both eyes for comfort. Local infiltration of anesthetic 2.5 cc into each upper lid, consisting of 1% xylocaine with epinephrine, normal saline and 1 cc hyluronidase was placed. This was then supplemented with full strength 2% xylocaine with epinephrine, 0.5% bupivacaine, and 1 cc hyalurondase. The face was prepped in an open manner. Attention was placed to the right upper lid. Using the previous cadena a number 15. Bard-Narendra blade was used to incise a skin muscle flap. The flap was lifted and removed. Cautery was applied as needed. Contouring of the muscle belly was also performed. Exploration of the nasal and preoperneurotic fat pads were performed removal and contouring with hemostat and scissors as well as cautery were performed. The lid was then closed with running and interrupted 6 0 Vicryl sutures. Same procedure was repeated for the left upper lid. The Betadine was removed. Maxitrol ointment was placed to suture line. She returned to recovery room in stable condition. Instructions for postoperative cold packs were reviewed. Nery Christopher MD. Same procedure(s) as scheduled: Yes Indications: Dermatachalsis both upper lids Surgeon: Nery Christopher Anesthesia Type: General and MAC +/- Operative Notes Findings: no complications or excess bleeding Prosthetic devices, grafts, tissues, transplants, or devices: no specimens Applied: none Estimated Blood Loss (mL): 1 Procedure in detail: compression leggings used Complications: none Post-operative Plan for aftercare: cold compressses and antibiotic ointment as per handout
--- NOTE | 2024-11-01 09:38 | PM.DS.1 ---
History of Present Illness History of Present Illness Date Patient Seen: 11/01/24 Time Patient Seen: 15:00 Chief complaint: Tyrell upper eyelid blephs Discharge Providers Provider Primary care physician: MYRON Jack Discharge provider: Nery Christopher MD Summary Hospital Course Discharge Diagnosis: outpatient [facility] Medical History (System 10/28/22 @ 08:50 by Bria Singh) Low back pain Left hip pain Fall from ladder Hyperlipidemia Osteoporosis Lumbar spine pain (~2005) Cervical spine disease (~2004) Chicken pox (~1953) Anemia (~1959) Human papilloma virus (~2005) Fibroids (~1994) Hemorrhoid (~1967) Diverticular disease (~1971) Colon polyps (~2009) Surgical History Normal colonoscopy (~2013) Anesthesia Status post dilation and curettage Status post ovarian cystectomy Status post tubal ligation Status post appendectomy History of tonsillectomy Family History Father Hypertension Brother Age: 97 Hyperlipidemia Mother High cholesterol Mental health problem Social History Smoking Status: Never smoker Discharge Plan Discharge Plan Patient Disposition: Home Discharge orders & Medications Prescriptions: No Action warfarin 2.5 mg tablet 2.5 mg PO DAILY metoprolol tartrate [Lopressor] 50 mg tablet 25 mg PO BID Pharmacist Comment: Warfarin will be held 3 days postop to reduce risk of bleeding. Then resume with INRs as previously planned with Dr. Weaver Follow up/Referrals: Caio Weaver MD [Physician, Family Practice] Visit Report/Discharge Packet Stand Alone Forms: Patient Portal/API Print Language: Uzbek Discharge Data Primary Care Provider: Simran Brunner Attending Provider: Nery Christopher
--- NOTE | 2024-11-01 09:38 | PM.DS.1 ---
History of Present Illness History of Present Illness Date Patient Seen: 11/01/24 Time Patient Seen: 15:00 Chief complaint: Tyrell upper eyelid blephs Discharge Providers Provider Primary care physician: Estee Jack MD Discharge provider: Nery Christopher MD Summary Hospital Course Discharge Diagnosis: s/p bleph ou upper PFSH Medical History (System 10/28/22 @ 08:50 by Bria Singh) Low back pain Left hip pain Fall from ladder Hyperlipidemia Osteoporosis Lumbar spine pain (~2005) Cervical spine disease (~2004) Chicken pox (~1953) Anemia (~1959) Human papilloma virus (~2005) Fibroids (~1994) Hemorrhoid (~1967) Diverticular disease (~1971) Colon polyps (~2009) Surgical History Normal colonoscopy (~2013) Anesthesia Status post dilation and curettage Status post ovarian cystectomy Status post tubal ligation Status post appendectomy History of tonsillectomy Family History Father Hypertension Brother Age: 97 Hyperlipidemia Mother High cholesterol Mental health problem Social History Smoking Status: Never smoker Discharge Plan Discharge Plan Patient Disposition: Home Provider Discharge Comment: See Handout Discharge orders & Medications Discharge Orders: Discharge (Order); Ordered 11/01/24 Ordered By: Nery Christopher Prescriptions: Continued warfarin 2.5 mg tablet 2.5 mg PO DAILY metoprolol tartrate [Lopressor] 50 mg tablet 25 mg PO BID Pharmacist Comment: Warfarin will be held 3 days postop to reduce risk of bleeding. Then resume with INRs as previously planned with Dr. Weaver Follow up/Referrals: Caio Weaver MD [Physician, Family Practice] Visit Report/Discharge Packet Stand Alone Forms: Patient Portal/API Print Language: Georgian Discharge Data Primary Care Provider: Simran Brunner Attending Provider: Nery Christopher
[2024-11-01] MEDS: LACTATED RINGERS 1,000 ML 42 ML IV (14:30)
[2024-11-01 14:34] VITALS: BP 114/54; PULSE 71; RESP 16; TEMP 36.5; O2SAT 98
[2024-11-01] MEDS: PROPARACAINE 0.5% OPHTH SOL 2 DROPS EYE-BOTH (17:30)
[2024-11-01] MEDS: LIDOCAINE 1% W/EPI 3 ML, SODIUM CHLORIDE 0.9% 2 ML, HYALURONIDASE 150 UNIT INJ (17:57)
[2024-11-01] MEDS: LIDOCAINE 1% W/EPI 10ML 4 ML INJ (18:04)
[2024-11-01] MEDS: LIDOCAINE 2% W/EPI 3 ML, BUPIVACAINE 0.5% (PF) 2 ML, HYALURONIDASE 150 UNIT INJ (18:10)
[2024-11-01] MEDS: NEOMYCIN/POLY/DEX OPHTH OINT 1 APPLIC EYE-BOTH (18:23)
[2024-11-01 18:28] VITALS: BP 121/61; PULSE 74; RESP 30; O2SAT 95
[2024-11-01 18:30] VITALS: BP 111/68; PULSE 79; RESP 30; O2SAT 96
[2024-11-01 18:35] VITALS: BP 117/58; PULSE 76; RESP 30; O2SAT 97
--- NOTE | 2024-11-01 18:38 | P.DS_ITS ---
History of Present Illness History of Present Illness Chief complaint: Tyrell upper eyelid blephs Discharge Providers Provider Primary care physician: MYRON Jack Discharge provider: Nery Christopher MD Exam Vital Signs (past 8 hours): - 11/01/24 14:34 11/01/24 18:28 11/01/24 18:30 Temperature 97.7 F Pulse Rate 71 74 79 Respiratory Rate 16 30 H 30 H Blood Pressure 114/54 L 121/61 111/68 Pulse Oximetry 98 95 96 Oxygen Delivery Method Room Air Room Air Room Air 11/01/24 18:35 Temperature Pulse Rate 76 Respiratory Rate 30 H Blood Pressure 117/58 L Pulse Oximetry 97 Oxygen Delivery Method Room Air Oxygen Delivery Method Room Air [facility] Medical History (System 10/28/22 @ 08:50 by Bria Singh) Low back pain Left hip pain Fall from ladder Hyperlipidemia Osteoporosis Lumbar spine pain (~2005) Cervical spine disease (~2004) Chicken pox (~1953) Anemia (~1959) Human papilloma virus (~2005) Fibroids (~1994) Hemorrhoid (~1967) Diverticular disease (~1971) Colon polyps (~2009) Surgical History Normal colonoscopy (~2013) Anesthesia Status post dilation and curettage Status post ovarian cystectomy Status post tubal ligation Status post appendectomy History of tonsillectomy Family History Father Hypertension Brother Age: 97 Hyperlipidemia Mother High cholesterol Mental health problem Social History Smoking Status: Never smoker Discharge Plan Discharge Plan Patient Disposition: Home Provider Discharge Comment: See Handout Discharge orders & Medications Discharge Orders: Discharge (Order); Ordered 11/01/24 Ordered By: Nery Christopher Prescriptions: Continued warfarin 2.5 mg tablet 2.5 mg PO DAILY metoprolol tartrate [Lopressor] 50 mg tablet 25 mg PO BID Pharmacist Comment: Warfarin will be held 3 days postop to reduce risk of bleeding. Then resume with INRs as previously planned with Dr. Weaver Follow up/Referrals: Caio Weaver MD [Physician, Family Practice] Visit Report/Discharge Packet Stand Alone Forms: Patient Portal/API Print Language: Eritrean Discharge Data Primary Care Provider: Simran Brunner Attending Provider: Nery Christopher
== END 2024-11-01 18:49 | disposition home or self-care (01) ==
PROVIDERS: Family Provider Internal Medicine; PCP Internal Medicine; Referring Provider Ophthalmology; Visit Provider Ophthalmology
PROC: (CPT 15823; principal; 2024-11-01 15:00)
DX: H02.834 Dermatochalasis of left upper eyelid (principal); H02.831 Dermatochalasis of right upper eyelid; I48.91 Unspecified atrial fibrillation; Z79.01 Long term (current) use of anticoagulants
CPT/HCPCS: 15823; J2250; J2405; J2704; J3470

== ENCOUNTER → 2024-12-20 08:06 | Outpatient (ROUT) | payer OTHER, SELFPAY ==
[2024-12-20 08:20] LABS: INR 2.6 (0.9-1.3); Prothrombin Time 28.8 SECONDS (9.4-12.5)
== END ==
PROVIDERS: Family Provider Internal Medicine; PCP Internal Medicine; Visit Provider Family Medicine
DX: I48.19 Other persistent atrial fibrillation (principal)
CPT/HCPCS: 85610

== ENCOUNTER → 2025-01-24 08:55 | Outpatient (ROUT) | payer OTHER, SELFPAY ==
[2025-01-24 09:08] LABS: INR 2.9 (0.9-1.3); Prothrombin Time 31.5 SECONDS (9.4-12.5)
== END ==
PROVIDERS: PCP Internal Medicine; Visit Provider Family Medicine
DX: I48.19 Other persistent atrial fibrillation (principal)
CPT/HCPCS: 85610

== ENCOUNTER → 2025-03-02 08:05 | Outpatient (ROUT) | payer OTHER, SELFPAY ==
[2025-03-02 08:37] LABS: INR 2.6 (0.9-1.3); Prothrombin Time 28.8 SECONDS (9.4-12.5)
== END ==
PROVIDERS: PCP Internal Medicine; Visit Provider Family Medicine
DX: I48.19 Other persistent atrial fibrillation (principal)
CPT/HCPCS: 85610

== ENCOUNTER → 2025-04-01 09:09 | Outpatient (ROUT) | payer OTHER, SELFPAY ==
[2025-04-01 09:15] LABS: INR 2.9 (0.9-1.3); Prothrombin Time 32.5 SECONDS (9.4-12.5)
== END ==
PROVIDERS: PCP Internal Medicine; Visit Provider Family Medicine
DX: I34.0 Nonrheumatic mitral (valve) insufficiency (principal); I48.19 Other persistent atrial fibrillation; I48.91 Unspecified atrial fibrillation
CPT/HCPCS: 85610